=== PATIENT | female | born 1985 | race Caucasian/White ===

== ENCOUNTER 2023-03-31 15:01 | Emergency (ER) | payer OTHER ==
[~2023-03-31] VITALS: Ht 165.1 cm; Wt 66.6 kg
[2023-03-31 16:29] VITALS: PULSE 104; RESP 22; O2SAT 96
[2023-03-31] MEDS ORDERED: SODIUM CHLORIDE 0.9% 1,000 ML IV ONE ×2 (16:30→17:30)
[2023-03-31] MEDS ORDERED: ONDANSETRON HCL 4 MG/2 ML VIAL IV ONE (16:45)
[2023-03-31 16:56] LABS: Base Excess -3.4 mmol/L (-2.0-2.0)
[2023-03-31 17:01] LABS: Basophils # (auto) 0.1 10 ^3/uL (0-0.2); Basophils % (auto) 0.7 % (0.0-2.0); Eosinophils # (auto) 0.3 10 ^3/uL (0-0.8); Hematocrit 39.6 % (36.0-46.0); Lymphocytes # (auto) 4.4 10 ^3/uL (0.4-5.4); Lymphocytes % (auto) 34.6 % (10.0-50.0); Mean Corpuscular Hemoglobin 30.1 pg (28.0-32.0); Mean Corpuscular Hgb Conc. 32.9 g/dL (32.0-36.0); Mean Corpuscular Volume 91.6 fL (80.0-100.0); Monocytes # (auto) 0.7 10 ^3/uL (0-1.3); Monocytes % (auto) 5.2 % (0.0-12.0); Neutrophils # (auto) 7.3 10 ^3/uL (1.6-8.6); Neutrophils % (auto) 57.5 % (37.0-80.0); Nucleated Red Blood Cells % 0.1 %; Red Blood Cells 4.33 10^6/uL (4.0-5.20); Red Cell Distribution Width 14.5 % (11.8-14.3); White Blood Cell 12.8 10^3/uL (4.4-10.8)
[2023-03-31 17:05] LABS: Urine Bacteria NONE SEEN /hpf (None Seen); Urine Blood Negative /uL (Negative); Urine Clarity Clear (Clear); Urine Color Colorless (Yellow); Urine Protein, UAD Negative (Negative); Urine Specific Gravity 1.012 (1.001-1.035); Urine Urobilinogen Normal (Negative); Urine WBC 2 /hpf (0 - 5)
[2023-03-31 17:19] LABS: Lactic Acid w/Reflex 4.1 mmol/L (0.4-2.0)
[2023-03-31 17:20] LABS: Alanine Aminotransferase 21 U/L (7-40); Albumin 4.1 g/dL (3.2-4.8); Alkaline Phosphatase 130 U/L (46-116); Anion Gap 9 (5-15); Aspartate Aminotransferase 37 U/L (13-40); BUN/Creatinine Ratio 12.3 (10.0-20.0); Blood Urea Nitrogen 9 mg/dL (9-23); Calcium 9.1 mg/dL (8.7-10.4); Carbon Dioxide 23 mmol/L (20-30); Chloride 106 mmol/L (98-107); Glucose 115 mg/dL (74-106); Magnesium 1.6 mg/dL (1.6-2.6); Potassium 3.8 mmol/L (3.5-5.1); Sodium 138 mmol/L (136-145)
[2023-03-31 17:21] LABS: Bilirubin, Total 0.6 mg/dL (0.2-1.0); Phosphorus 2.6 mg/dL (2.4-5.1); Total Protein 7.2 g/dL (5.7-8.2)
[2023-03-31 19:26] VITALS: PULSE 91; RESP 12; O2SAT 99
[2023-03-31 19:30] VITALS: TEMP 98.1
[2023-03-31] MEDS ORDERED: ACETAMINOPHEN 325 MG TAB PO ONE (20:15)
[2023-03-31] MEDS ORDERED: INSLISPI SC (20:45)
[2023-03-31] MEDS ORDERED: INSLANTI SC (20:45)
[2023-03-31 20:49] VITALS: BP 98/66; PULSE 88; RESP 20; O2SAT 99
== END 2023-03-31 21:36 | disposition home or self-care (01) ==
LOC: ER 15:01
DX: E11.65 Type 2 diabetes mellitus with hyperglycemia (principal); R10.2 Pelvic and perineal pain; F17.210 Nicotine dependence, cigarettes, uncomplicated; Z32.02 Encounter for pregnancy test, result negative; Z90.49 Acquired absence of other specified parts of digestive tract; Z88.1 Allergy status to other antibiotic agents
CPT/HCPCS: 36415; 36600; 80053; 81001; 81025; 82010; 82805; 82962; 83605; 83735; 84100; 84702; 85025; 96361; 96374; 99285; J2405; J7030

== ENCOUNTER 2025-02-17 13:38 | Inpatient (IN) | payer OTHER, BC, MEDICAID ==
[2025-02-17] VITALS (10 sets, daily range): BP systolic 103–141; BP diastolic 55–79; PULSE 91–111; RESP 12–22; TEMP 99.2; O2SAT 93–100
[~2025-02-17] VITALS: Ht 165.1 cm; Wt 76.3 kg
[~2025-02-17 13:38] MED LIST: INSLANTI SC; INSLISPI SC
[2025-02-17] MEDS: SODIUM CHLORIDE 0.9% 2,000 ML IV ONE (13:59)
[2025-02-17 14:28] LABS: Hematocrit 41.9 % (36.0-46.0); Hemoglobin 13.5 g/dL (12.2-16.2); Mean Corpuscular Hemoglobin 28.5 pg (28.0-32.0); Mean Corpuscular Volume 88.6 fL (80.0-100.0); Nucleated Red Blood Cells % 0.0 %
[2025-02-17 14:37] LABS: Alanine Aminotransferase 17 U/L (7-40); Albumin 4.7 g/dL (3.2-4.8); Anion Gap 21 (5-15); BUN/Creatinine Ratio 12.3 (10.0-20.0); Blood Urea Nitrogen 17 mg/dL (9-23); Calcium 8.9 mg/dL (8.7-10.4); Chloride 106 mmol/L (98-107); Potassium 4.4 mmol/L (3.5-5.1); Sodium 137 mmol/L (136-145); Total Protein 7.9 g/dL (5.7-8.2)
--- NOTE | 2025-02-17 14:37 | ED.PDOC ---
History of present illness HPI Comments 39-year-old female presents here with active vomiting. She has been vomiting for 1 day several times. She states she has not taken her insulin Lantus in 3 days as pharmacy she is to go to his clothes. She states yesterday she began to vomit. She began to have bloody emesis and began to have abdominal pain. She states she took a little bit of her Humalog yesterday. Denies any cough cold runny nose fever or chills. Denies being sick recently. Known history of diabetes. No other medical problems. Is not on blood thinners. Chief Complaint: Hyperglycemia Time Seen by MD: 14:35 History of present illness: Nurses Notes, Medications, Allergies Allergies: Coded Allergies: Sulfamethoxazole w/Trimethoprim (Verified Allergy, Unknown, 02/17/25) Home Meds Active Scripts Insulin Lispro (Human) (Humalog) 100 Unit/Ml Inj, 100 UNIT SC TIDP PRN MDD 30 for 30 Days, #1 INJ 1 Refill Take your usual dose of 10 units before each meal. Prov:JOSEPH ALEJO DO 03/31/23 Insulin Glargine (Lantus) 100 Unit/Ml Inj, 100 UNIT SC DAILY MDD 30 for 30 Days, #30 UNIT take your usual dose of 30 units daily in the morning. Prov:JOSEPH ALEJO DO 03/31/23 Information Source: Patient Mode of Arrival: Ambulatory Timing: Days Duration: Since onset Prehospital treatment: None Modifying factors: Nothing Associated signs and symptoms: None Past Medical History PAST MEDICAL HISTORY: DM, Denies Surgical History: Cholecystectomy DOUBLE END TRIMMER History: No Pertinent DOUBLE END TRIMMER History Family History Family History: Unknown Social History Smoker: Cigarettes Alcohol: Denies ETOH Use Drugs: Denies Drug Use Lives In: Home Constitutional: denies: chills, diaphoresis, fatigue, fever, malaise, sweats, weakness, others EENTM: denies: blurred vision, double vision, ear bleeding, ear discharge, ear drainage, ear pain, ear ringing, eye pain, eye redness, hearing loss, mouth pain, mouth swelling, nasal discharge, nose bleeding, nose congestion, nose pain, photophobia, tearing, throat pain, throat swelling, voice changes, others Respiratory: denies: cough, hemoptysis, orthopnea, SOB at rest, shortness of breath, SOB with excertion, stridor, wheezing, others Cardiovascular: denies: chest pain, dizzy spells, diaphoresis, Dyspnea on exertion, edema, irregular heart beat, left arm pain, lightheadedness, palpitations, PND, syncope, others Gastrointestinal: denies: abdomen distended, abdominal pain, blood streaked bowels, constipated, diarrhea, dysphagia, difficulty swallowing, hematemesis, melena, nausea, poor appetite, poor fluid intake, rectal bleeding, rectal pain, vomiting, others Genitourinary: denies: abnormal vagina bleeding, burning, dyspareunia, dysuria, flank pain, frequency, hematuria, incontinence, pain, , vagina discharge, urgency, others Neurological: denies: dizziness, fainting, headache, left sided numbness, left sided weakness, numbness, paresthesia, pre-existing deficit, right sided numbness, right sided weakness, seizure, speech problems, tingling, tremors, wea kness, others Musculoskeletal: denies: back pain, gout, joint pain, joint swelling, muscle pain, muscle stiffness, neck pain, others Integumetry: denies: bruises, change in color, change in hair/nails, dryness, l aceration, lesions, lumps, rash, wounds, others Allergic/Immunocompromised: denies: Difficulty Healing, Frequent Infections, Hives, Itching, others Hematologic/Lymphatic: denies: anemia, blood clots, easy bleeding, easy bruising, swollen glands, others Endocrine: denies: excessive hunger, excessive sweating, excessive thirst, excessive urination, flushing, intolerance to cold, intolerance to heat, unexplained weight gain, unexplained weight loss, others Psychiatric: denies: anxiety, bipolar disorder, depression, hopeless, panic disorder, schizophrenia, sleepless, suicidal, others All Other Systems: Reviewed and Negative Physical Exam Exam Comments Actively vomiting bright red blood, pale diaphoretic General Appearance: Normal, Severe Distress HEENT: Normal ENT Inspection, Pharynx Normal Neck: Full Range of Motion, Non-Tender, Normal, Normal Inspection Respiratory: Chest Non-Tender, Lungs Clear, No Accessory Muscle Use, No Respiratory Distress, Normal Breath Sounds Cardiovascular: Normal Peripheral Pulses, Tachycardia Breast Exam: Deferred Gastrointestinal: No Organomegaly, Non Tender, No Pulsatile Mass, Normal Bowel Sounds, Soft Genitalia: Deferred Pelvic: Deferred Rectal: Deferred Extremities: No calf tenderness, Normal capillary refill, Normal inspection, N ormal range of motion, Non-tender, No pedal edema Musculoskeletal : Apperance: Normal Neurologic: Alert, No Motor Deficits, Normal Affect, Normal Mood, No Sensory Deficits Cerebellar Function: Normal Reflexes: Normal Skin: Dry, Normal Color, Warm Lymphatic: No Adenopathy Was a procedure done? Was a procedure done?: No Differential Diagnosis (DM) Differential Diagnosis: Dehydration, Diabetic Coma, DKA, Electrolyte Abnormality, Gastroenteritis, Hyperglycemia, UTI, Other (Pneumonia, dehydration, upper GI bleed) X-Ray, Labs, Meds, VS Vital Signs Date Time Temp Pulse Resp B/P (MAP) Pulse Ox O2 Delivery O2 Flow Rate FiO2 02/17/25 15:45 109 22 136/86 (103) 100 02/17/25 14:00 98.5 101 18 137/89 100 98.5 Lab Test 02/17/25 15:35 02/17/25 15:15 02/17/25 14:10 Range/Units Blood Gas Specimen Type Arterial Blood Gas Sample Site Right radial Blood Gas Patient Temperature 37.0 Arterial Blood Date Drawn [id number] Arterial Blood pH 7.305 L 7.350-7.450 Arterial Blood Partial Pressure CO2 19.9 *L 32.0-45.0 mmHg Arterial Blood Partial Pressure O2 100.9 83.0-108.0 mmHg Arterial Blood HCO3 9.7 L 21.0-28.0 mmol/L Arterial Blood Oxygen Saturation 97.4 94.0-98.0 % Arterial Blood Base Excess -14.4 L -2.0-3.0 mmol/L Arterial Blood Oxyhemoglobin 96.3 94.0-98.0 % Arterial Blood Carboxyhemoglobin 0.5 0.5-1.5 % Arterial Blood Methemoglobin 0.6 0.0-1.5 % Erich Test Yes Blood Gas Total Hemoglobin 13.40 12.0-16.0 g/dL Blood Gas Modality Room air FiO2 % 21.0 Blood Gas Critical Value Read Back Yes Blood Gas Notified Whom geraldine Shen Blood Gas Notified Time [id number] Blood Gas Notified By Manual Arts Therapist radha vale POC Glucose 326 H 70-106 mg/dl White Blood Count 19.5 H 4.4-10.8 10^3/uL Red Blood Count 4.73 4.0-5.20 10^6/uL Hemoglobin 13.5 12.2-16.2 g/dL Hematocrit 41.9 36.0-46.0 % Mean Corpuscular Volume 88.6 80.0-100.0 fL Mean Corpuscular Hemoglobin 28.5 28.0-32.0 pg Mean Corpuscular Hemoglobin Concent 32.1 32.0-36.0 g/dL Red Cell Distribution Width 15.9 H 11.8-14.3 % Platelet Count 335 140-450 10^3/uL Mean Platelet Volume 9.7 6.9-10.8 fL Neutrophils (%) (Auto) 87.2 H 37.0-80.0 % Lymphocytes (%) (Auto) 9.7 L 10.0-50.0 % Monocytes (%) (Auto) 3.0 0.0-12.0 % Eosinophils (%) (Auto) 0.0 0.0-7.0 % Basophils (%) (Auto) 0.1 0.0-2.0 % Neutrophils # (Auto) 17.0 H 1.6-8.6 10 ^3/uL Lymphocytes # (Auto) 1.9 0.4-5.4 10 ^3/uL Monocytes # (Auto) 0.6 0-1.3 10 ^3/uL Eosinophils # (Auto) 0 0-0.8 10 ^3/uL Basophils # (Auto) 0 0-0.2 10 ^3/uL Nucleated Red Blood Cells 0.0 % Sodium Level 137 136-145 mmol/L Potassium Level 4.4 3.5-5.1 mmol/L Chloride Level 106 98-107 mmol/L Carbon Dioxide Level 10 L 20-31 mmol/L Anion Gap 21 H 5-15 Blood Urea Nitrogen 17 9-23 mg/dL Creatinine 1.38 H 0.550-1.02 mg/dL Glomerular Filtration Rate Calc 50 >90 mL/min BUN/Creatinine Ratio 12.3 10.0-20.0 Serum Glucose 367 H 74-106 mg/dL Hemoglobin A1c Pending Serum Osmolality 319 H 278-298 mOsm/kg Calcium Level 8.9 8.7-10.4 mg/dL Phosphorus Level 3.4 2.4-5.1 mg/dL Magnesium Level 1.7 1.6-2.6 mg/dL Total Bilirubin 0.9 0.2-1.0 mg/dL Aspartate Amino Transferase (AST) 15 13-40 U/L Alanine Aminotransferase (ALT) 17 7-40 U/L Alkaline Phosphatase 155 H 46-116 U/L Total Protein 7.9 5.7-8.2 g/dL Albumin 4.7 3.2-4.8 g/dL Beta-Hydroxybutyric Acid > 4.500 H < 0.4 mmol/L Current Medications Medications (Trade) Dose Ordered Sig/Petra Route Start Time Stop Time Status Last Admin Sodium Chloride 2,000 ml @ 1,000 mls/hr Q2H ONCE IV 02/17/25 14:00 02/17/25 15:59 DC 02/17/25 13:59 Ondansetron HCl (Zofran) 4 mg ONCE ONCE IV 02/17/25 15:00 02/17/25 15:01 DC 02/17/25 15:31 Famotidine (Pepcid Injection) 40 mg ONCE ONCE IV 02/17/25 15:00 02/17/25 15:01 DC 02/17/25 15:31 Sodium Chloride 1,000 ml @ 500 mls/hr Q2H IV 02/17/25 15:00 02/17/25 16:59 02/17/25 15:00 Insulin Human (Reg)/Sodium Chloride 100 ml @ 0.5 mls/hr Q24H IV 02/17/25 15:00 02/17/25 15:45 Diagnostic Test (Pha) (Accu-Chek Comfort Curve T) 1 strip Q90MIN 02/17/25 15:00 02/17/25 16:46 Insulin Glargine (Lantus) 15 units ONCE ONCE SC 02/17/25 15:00 02/17/25 15:03 DC 02/17/25 15:28 Insulin Human Regular (InsuLIN R) 7 units ONCE ONCE IV 02/17/25 15:15 02/17/25 15:16 DC 02/17/25 15:31 39-year-old female with a known history of diabetes presents here with what appears to be in DKA. Blood work has been done which demonstrates evidence of leukocytosis of 19.8, and anion gap of 21, evidence of acute kidney injury with a be creatinine 1.38 and elevated beta hydroxybutyrate greater than 4.5. Blood glucose is at 367. At this time I have immediately started her on IV fluids, patient has been given an insulin bolus and started on insulin drip. Potassium is currently 4.4 does not need active repletion at this time. She states she has been out of her Lantus x3 days and is likely the cause of her current DKA. Additionally she seems to be having an upper GI bleed possible gastric ulcer. Mother is at bedside who states that when she begins to vomit she often has bloody emesis and then begins to have black stools. I have started her on famotidine IV. Given her leukocytosis of 19.8, concern for possible infection that is precipitating this event also. Urine has been ordered as chest x-ray. Both are pending. At this time hospitalist team has been consulted for further care. Time of 1ST Reevaluation: 15:05 Reevaluation 1ST: Unchanged Patient Education/Counseling: Diagnosis, Treatment Family Education/Counseling: No Family Present SEPSIS Sepsis Screen Physician Orders Urinalysis (02/17/25 13:49) Test, Urine (02/17/25 13:49) Chest Two Views Routine (02/17/25 14:56) Insulin Drip Protocol (02/17/25 ) Sodium Chloride 0.9% (02/17/25 15:00) Sodium Chloride 0.9% (02/17/25 17:00) Sodium Chloride 0.9% (02/17/25 21:00) Insulin Drip 100 Unit/100ml (Myxredlin 1 (02/17/25 15:00) Dextrose 50% Syringe (02/17/25 15:00) Glucose Blood (Accu-Chek Comfort Curve T (02/17/25 15:00) Abg W/ Co-Ox (02/17/25 14:59) Basic Metabolic Panel (02/17/25 20:59) Basic Metabolic Panel (02/18/25 02:59) Basic Metabolic Panel (02/18/25 08:59) Neurological Assessment (02/17/25 14:59) Vs/Hemodynamics .PER UNIT PROTOCOL (02/17/25 14:59) Vital Signs Date Time Temp Pulse Resp B/P (MAP) Pulse Ox O2 Delivery O2 Flow Rate FiO2 02/17/25 15:45 109 22 136/86 (103) 100 02/17/25 14:00 98.5 101 18 137/89 100 98.5 Laboratory Tests Test 02/17/25 14:10 White Blood Count 19.5 10^3/uL (4.4-10.8) H Medications Medications Dose Ordered Sig/Petra Route Start Time Stop Time Status Last Admin Dose Admin Diagnostic Test (Pha) 1 strip Q90MIN 02/17/25 15:00 02/17/25 16:46 Famotidine 40 mg ONCE ONCE IV 02/17/25 15:00 02/17/25 15:01 DC 02/17/25 15:31 Insulin Glargine 15 units ONCE ONCE SC 02/17/25 15:00 02/17/25 15:03 DC 02/17/25 15:28 Insulin Human (Reg)/Sodium Chloride 100 ml @ 0.5 mls/hr Q24H IV 02/17/25 15:00 02/17/25 15:45 Insulin Human Regular 7 units ONCE ONCE IV 02/17/25 15:15 02/17/25 15:16 DC 02/17/25 15:31 Ondansetron HCl 4 mg ONCE ONCE IV 02/17/25 15:00 02/17/25 15:01 DC 02/17/25 15:31 Sodium Chloride 1,000 ml @ 500 mls/hr Q2H IV 02/17/25 15:00 02/17/25 16:59 02/17/25 15:00 Sodium Chloride 2,000 ml @ 1,000 mls/hr Q2H ONCE IV 02/17/25 14:00 02/17/25 15:59 DC 02/17/25 13:59 Departure 1 Departure Time of Disposition: 17:05 Impression: Primary Impression: DKA (diabetic ketoacidosis) Qualified Codes: E10.10 - Type 1 diabetes mellitus with ketoacidosis without coma Additional Impression: Upper GI bleed Disposition: ADMITTED INPATIENT Admit to: ICU Condition: Critical Critical Care Note Critical Care Time?: Yes (35 min-critical care time only) Critical care comment: Time spent evaluating the patient, speaking to the patient immediately upon arrival, and care with nursing staff, speaking to admitting physician, speaking to family and the patient, multiple re-evaluations Stability Stability form required: No Heart Score Heart Score: Heart Score Response (Comments) Value History N/A 0 EKG N/A 0 Age N/A 0 Risk Factors N/A 0 Troponin N/A 0 Total 0 I personally scribed for DIANNA RUSSO MD ([email or web address]) on 02/17/25 at 14:37. Electronically submitted by Saundra Anna ([email or web address]). DIANNA RUSSO MD Feb 17, 2025 14:37
[2025-02-17 14:38] LABS: Bilirubin, Total 0.9 mg/dL (0.2-1.0)
[2025-02-17 14:41] LABS: Alkaline Phosphatase 155 U/L (46-116); Carbon Dioxide 10 mmol/L (20-31); Glucose 367 mg/dL (74-106)
[2025-02-17] MEDS: SODIUM CHLORIDE 0.9% 1,000 ML IV SCH ×2 (15:00→17:33)
[2025-02-17] MEDS ORDERED: DEXTROSE (50%) 50ML SYRG IV PRN ×2 (15:00→20:30)
[2025-02-17] MEDS: ACCU-CHEK COMFORT CURVE STRIP VI SCH ×2 (15:18→22:20)
[2025-02-17] MEDS: INSULIN LANTUS (GLARGINE) 1 /0.01ml (100units/ml) SC ONE ×2 (15:28→21:00)
[2025-02-17] MEDS: InsuLIN REG 1unit/0.01ml Soln (100units/ml) IV ONE (15:31)
[2025-02-17] MEDS: ONDANSETRON HCL 4 MG/2 ML VIAL IV ONE (15:31)
[2025-02-17] MEDS: FAMOTIDINE (10MG/ML) 2ML VL IV ONE (15:31)
[2025-02-17 15:44] LABS: Base Excess -14.4 mmol/L (-2.0-3.0)
[2025-02-17] MEDS: INSULIN DRIP 100 UNIT/100ML 100 ML IV SCH ×2 (15:45→19:30)
[2025-02-17 15:46] LABS: Magnesium 1.7 mg/dL (1.6-2.6)
--- NOTE | 2025-02-17 16:22 | DVHHP2 ---
History of Present Illness Reason for Visit: Hyperglycemia History of Present Illness 39-year-old female with past medical history of type 1 diabetes mellitus presents to the ED with hyperglycemia. She reports running out of her Lantus three days ago, leading to progressive hyperglycemia associated with nausea and vomiting. She describes episodes of coffee ground emesis with blood-tinged vomit. She also reports generalized abdominal pain. She denies melena, hematochezia, chest pain, shortness of breath, or urinary symptoms. In the ED, the patient was found to be in diabetic ketoacidosis and was started on insulin infusion per DKA protocol. Social history is notable for vaping and marijuana use. Past Medical History As stated in HPI Past Surgical History Cholecystectomy Family History Reviewed, non-contributory to the management of this case. Past Social History The patient lives at home, denies smoking, alcohol or illicit drugs abuse. Review of Systems Constitutional: Yes: Malaise; No: Fever, Chills, Sweats, Weakness, Other Eyes: No: Pain, Vision change, Conjunctivae inflammation, Eyelid inflammation, Other, Redness ENT: No: Ear pain, Ear discharge, Nose pain, Nose discharge, Nose congestion, Mouth pain, Mouth swelling, Throat pain, Throat swelling, Other Respiratory: No: Cough, Dry, Shortness of breath, SOB with excertion, Wheezing, Hemoptysis, Pleuritic Pain, Sputum, Wheezing, Other Cardiovascular: No: Chest Pain, Palpitations, Orthopnea, Paroxysmal Noc. Dyspnea, Edema, Lt Headedness, Other Gastrointestinal: Nausea, Vomiting, Abdominal Pain, Other (Coffee-ground blood- tinged emesis); No: Diarrhea, Constipation, Melena, Hematochezia Genitourinary: No Dysuria, No Frequency, No Incontinence, No Hematuria, No Retention, No Other Musculoskeletal: No: other, neck pain, shoulder pain, arm pain, back pain, hand pain, leg pain, foot pain Skin: No: Rash, Lesions, Jaundice, Bruising, Other Neurological: No: Weakness, Numbness, Incoordination, Change in speech, Confusion, Seizures, Other Allergies: Coded Allergies: Sulfamethoxazole w/Trimethoprim (Verified Allergy, Unknown, 02/17/25) Medications Current Medications Medications Dose Ordered Sig/Petra Route Start Time Stop Time Status Last Admin Dose Admin Sodium Chloride 1,000 ml @ 500 mls/hr Q2H IV 02/17/25 15:00 02/17/25 16:59 Sodium Chloride 1,000 ml @ 250 mls/hr Q4H IV 02/17/25 17:00 02/17/25 17:01 Sodium Chloride 1,000 ml @ 150 mls/hr Q6H40M IV 02/17/25 21:00 Insulin Human (Reg)/Sodium Chloride 100 ml @ 0.5 mls/hr Q24H IV 02/17/25 15:00 02/17/25 15:45 4 MLS/HR Dextrose 50 ml UD PRN IV 02/17/25 15:00 Diagnostic Test (Pha) 1 strip Q90MIN 02/17/25 15:00 02/17/25 15:18 1 STRIP Ondansetron HCl 4 mg Q4HP PRN IV 02/17/25 16:15 UNV Magnesium Sulfate/ Dextrose 100 ml @ 100 mls/hr Q1H IV 02/17/25 16:15 02/17/25 18:14 UNV Pantoprazole Sodium 40 mg BID IV 02/17/25 16:15 UNV Exam Vital Signs Vital Signs Date Time Temp Pulse Resp B/P (MAP) Pulse Ox O2 Delivery O2 Flow Rate FiO2 02/17/25 15:45 109 22 136/86 (103) 100 02/17/25 14:00 98.5 98.5 General Appearance: Alert, Oriented X3, Cooperative, mild distress HEENT: Atraumatic, PERRLA, EOMI, Mucous membr. moist/pink Respiratory: Clear to auscultation, Normal air movement Cardiovascular: Regular rate, Normal S1, Normal S2 Abdominal: Normal bowel sounds, No tenderness Extremities: No clubbing, No cyanosis, No edema Skin: No rashes, No breakdown Neuro: Normal speech Psych/Mental Status: Mental status NL Labs/Xrays Labs Test 02/17/25 15:35 02/17/25 15:15 02/17/25 14:10 Range/Units Blood Gas Specimen Type Arterial Blood Gas Sample Site Right radial Blood Gas Patient Temperature 37.0 Arterial Blood Date Drawn [id number] Arterial Blood pH 7.305 L 7.350-7.450 Arterial Blood Partial Pressure CO2 19.9 *L 32.0-45.0 mmHg Arterial Blood Partial Pressure O2 100.9 83.0-108.0 mmHg Arterial Blood HCO3 9.7 L 21.0-28.0 mmol/L Arterial Blood Oxygen Saturation 97.4 94.0-98.0 % Arterial Blood Base Excess -14.4 L -2.0-3.0 mmol/L Arterial Blood Oxyhemoglobin 96.3 94.0-98.0 % Arterial Blood Carboxyhemoglobin 0.5 0.5-1.5 % Arterial Blood Methemoglobin 0.6 0.0-1.5 % Erich Test Yes Blood Gas Total Hemoglobin 13.40 12.0-16.0 g/dL Blood Gas Modality Room air FiO2 % 21.0 Blood Gas Critical Value Read Back Yes Blood Gas Notified Whom geraldine Shen Blood Gas Notified Time [id number] Blood Gas Notified By Verification Manager radha vale POC Glucose 326 H 70-106 mg/dl White Blood Count 19.5 H 4.4-10.8 10^3/uL Red Blood Count 4.73 4.0-5.20 10^6/uL Hemoglobin 13.5 12.2-16.2 g/dL Hematocrit 41.9 36.0-46.0 % Mean Corpuscular Volume 88.6 80.0-100.0 fL Mean Corpuscular Hemoglobin 28.5 28.0-32.0 pg Mean Corpuscular Hemoglobin Concent 32.1 32.0-36.0 g/dL Red Cell Distribution Width 15.9 H 11.8-14.3 % Platelet Count 335 140-450 10^3/uL Mean Platelet Volume 9.7 6.9-10.8 fL Neutrophils (%) (Auto) 87.2 H 37.0-80.0 % Lymphocytes (%) (Auto) 9.7 L 10.0-50.0 % Monocytes (%) (Auto) 3.0 0.0-12.0 % Eosinophils (%) (Auto) 0.0 0.0-7.0 % Basophils (%) (Auto) 0.1 0.0-2.0 % Neutrophils # (Auto) 17.0 H 1.6-8.6 10 ^3/uL Lymphocytes # (Auto) 1.9 0.4-5.4 10 ^3/uL Monocytes # (Auto) 0.6 0-1.3 10 ^3/uL Eosinophils # (Auto) 0 0-0.8 10 ^3/uL Basophils # (Auto) 0 0-0.2 10 ^3/uL Nucleated Red Blood Cells 0.0 % Sodium Level 137 136-145 mmol/L Potassium Level 4.4 3.5-5.1 mmol/L Chloride Level 106 98-107 mmol/L Carbon Dioxide Level 10 L 20-31 mmol/L Anion Gap 21 H 5-15 Blood Urea Nitrogen 17 9-23 mg/dL Creatinine 1.38 H 0.550-1.02 mg/dL Glomerular Filtration Rate Calc 50 >90 mL/min BUN/Creatinine Ratio 12.3 10.0-20.0 Serum Glucose 367 H 74-106 mg/dL Serum Osmolality 319 H 278-298 mOsm/kg Calcium Level 8.9 8.7-10.4 mg/dL Phosphorus Level 3.4 2.4-5.1 mg/dL Magnesium Level 1.7 1.6-2.6 mg/dL Total Bilirubin 0.9 0.2-1.0 mg/dL Aspartate Amino Transferase (AST) 15 13-40 U/L Alanine Aminotransferase (ALT) 17 7-40 U/L Alkaline Phosphatase 155 H 46-116 U/L Total Protein 7.9 5.7-8.2 g/dL Albumin 4.7 3.2-4.8 g/dL Beta-Hydroxybutyric Acid > 4.500 H < 0.4 mmol/L SEPSIS Sepsis Screen Date sepsis recognized/suspect: Feb 17, 2025 Time Sepsis recognized/suspect: 14:00 Recent Procedure: No On Antibiotic Therapy: No Respiratory Rate >20: No Heart Rate >90: Yes Temp<36 C (96.8 F) or >38.3 C: No SBP <90 or MAP <65 mmHG: No New Acute Mental Status Change: No Is the patient on CPAP, BIPAP,: No Physician Orders Urinalysis (02/17/25 13:49) Test, Urine (02/17/25 13:49) Chest Two Views Routine (02/17/25 14:56) Insulin Drip Protocol (02/17/25 ) Sodium Chloride 0.9% (02/17/25 15:00) Sodium Chloride 0.9% (02/17/25 17:00) Sodium Chloride 0.9% (02/17/25 21:00) Insulin Drip 100 Unit/100ml (Myxredlin 1 (02/17/25 15:00) Dextrose 50% Syringe (8/24/25 15:00) Glucose Blood (Accu-Chek Comfort Curve T (02/17/25 15:00) Abg W/ Co-Ox (02/17/25 14:59) Basic Metabolic Panel (02/17/25 20:59) Basic Metabolic Panel (02/18/25 02:59) Basic Metabolic Panel (02/18/25 08:59) Neurological Assessment (02/17/25 14:59) Vs/Hemodynamics .PER UNIT PROTOCOL (02/17/25 14:59) Admit (02/17/25 16:10) Code Status (02/17/25 16:10) Ondansetron Hcl (Zofran) (02/17/25 16:15) Complete Blood Count (02/18/25 04:00) Comprehensive Metabolic Panel (02/18/25 04:00) Npo (Nothing By Mouth) Diet (02/17/25 Dinner) Condition: Serious (02/17/25 16:10) Magnesium Sulfate 1gm/100ml (02/17/25 16:15) Pantoprazole (Protonix) (02/17/25 16:15) Ct Ab Pel Wo Con-No Oral Or Iv (02/17/25 16:10) Vital Signs Date Time Temp Pulse Resp B/P (MAP) Pulse Ox O2 Delivery O2 Flow Rate FiO2 02/17/25 15:45 109 22 136/86 (103) 100 02/17/25 14:00 98.5 101 18 137/89 100 98.5 Laboratory Tests Test 02/17/25 14:10 White Blood Count 19.5 10^3/uL (4.4-10.8) H Medications Medications Dose Ordered Sig/Petra Route Start Time Stop Time Status Last Admin Dose Admin Diagnostic Test (Pha) 1 strip Q90MIN 02/17/25 15:00 02/17/25 15:18 1 STRIP Famotidine 40 mg ONCE ONCE IV 02/17/25 15:00 02/17/25 15:01 DC 02/17/25 15:31 40 MG Insulin Glargine 15 units ONCE ONCE SC 02/17/25 15:00 02/17/25 15:03 DC 02/17/25 15:28 15 UNITS Insulin Human (Reg)/Sodium Chloride 100 ml @ 0.5 mls/hr Q24H IV 02/17/25 15:00 02/17/25 15:45 4 MLS/HR Insulin Human Regular 7 units ONCE ONCE IV 02/17/25 15:15 02/17/25 15:16 DC 02/17/25 15:31 7 UNITS Ondansetron HCl 4 mg ONCE ONCE IV 02/17/25 15:00 02/17/25 15:01 DC 02/17/25 15:31 4 MG Sodium Chloride 2,000 ml @ 1,000 mls/hr Q2H ONCE IV 02/17/25 14:00 02/17/25 15:59 DC 02/17/25 13:59 1,000 MLS/HR Assessment/Plan Assessment/Plan # DKA # DM type 1 * Admit to ICU * Continue with DKA protocol * BMP q.6 hours * Monitor electrolytes and replete as needed # rule out GI Bleed # acute abdominal pain * CT of abdomen and pelvis * NPO * Protonix b.i.d. * Monitor H&H and Consider GI consult as needed # hypomagnesemia * Repleted * Monitor # vaping and marijuana use * Counseled on cessation Medical plan discussed with patient Plan discussed with: Patient My Orders Orders - JOSE CARRILLO Procedure Category Date Status Time Admit ADMIT 02/17/25 Transmitted 16:10 Code Status CODE 02/17/25 Transmitted 16:10 Ondansetron Hcl PHA 02/17/25 Logged (Zofran) 16:15 Complete Blood Count LAB 02/18/25 Verified 04:00 Comprehensive LAB 02/18/25 Verified Metabolic Panel 04:00 Npo (Nothing By DIET 02/17/25 Transmitted Mouth) Diet Dinner Condition: Serious TENA 02/17/25 In Process 16:10 Magnesium Sulfate PHA 02/17/25 Logged 1gm/100ml 16:15 Pantoprazole PHA 02/17/25 Logged (Protonix) 16:15 Ct Ab Pel Wo Con-No CT 02/17/25 Logged Oral Or Iv 16:10 Date of Service: Feb 17, 2025 Billing Provider: JOSE CARRILLO Common Visit Codes: [id number] INP/OBS CARE (HIGH) JOSE CARRILLO Feb 17, 2025 16:22
[2025-02-17] MEDS: PANTOPRAZOLE 40 MG/10 ML VIAL INJ IV SCH (17:33)
[2025-02-17] MEDS: MAGNESIUM SULFATE 1GM/100ML 100 ML IV SCH (17:50)
[2025-02-17 18:09] LABS: Urine Protein, UAD 1+ (Negative)
[2025-02-17] MEDS: ONDANSETRON HCL 4 MG/2 ML VIAL IV PRN (18:49)
--- NOTE | 2025-02-17 18:54 | DVH ---
Exam: CT CT AB PEL WO CON-NO ORAL OR IV History: adominal pain Comparison Study: None Technique: Multidetector spiral CT of the abdomen was performed from lung bases to pubic symphysis. Imaging was performed without IV contrast. Axial, coronal and sagittal multiplanar reformats were ob tained from the axial data set by the technologist. Radiation Dose : 1. Abdomen/Pelvis: CTDIvol 13.2 mGy, DLP 710 mGy*cm. Findings: Evaluation of solid organs is limited due to lack of intravenous contrast use. Lung Bases: No acute or significant lung base finding. Normal heart size. No pleural or pericardial effusion. Liver: The liver is normal in size. No focal lesions. Focal fatty sparing is seen adjacent to the fa lciform ligament. Gallbladder and Biliary Tree: Gallbladder is surgically absent. Spleen: Unremarkable Pancreas: The pancreas is grossly normal in appearance. Adrenal Glands: Unremarkable Kidneys: Kidneys are grossly normal without calculi or hydronephrosis. Bladder: Grossly unremarkable for degree of distention. Bowel: The stomach is grossly normal in appearance. No evidence of bowel obstruction. Mild wall thic kening throughout the colon may reflect mild colitis. The appendix is not visualized; however, no se condary findings of acute appendicitis identified. Ascites: Absent Lymphadenopathy: No mesenteric, retroperitoneal or periportal lymphadenopathy. Abdominal Wall and Mesentery: Unremarkable. Vasculature: The visualized abdominal aorta is normal in size and caliber. Evaluation of abdominal a nd pelvic vessels is limited due to lack of intravenous contrast. Pelvic Organs: Unremarkable Musculoskeletal: No aggressive focal bony lesions, acute fractures or dislocation. IMPRESSION: 1. Mild wall thickening throughout the colon may reflect mild colitis. Radiation optimization: All CT scans at this facility use at least one of these dose optimization neftali hniques: automated exposure control mA and/or kV adjustment per patient size (includes targeted exam s where dose is matched to clinical indication) or iterative reconstruction.
--- NOTE | 2025-02-17 18:57 | DVH ---
CHEST RADIOGRAPH Indication: ro infection Technique: Single frontal view of the chest was obtained Comparison: None FINDINGS: Lines and Tubes: None Lungs: No focal consolidation. Pleura: No effusion. No pneumothorax. Cardiomediastinal contours: Unremarkable Bones: No acute osseous abnormality. IMPRESSION: No acute cardiopulmonary disease.
[2025-02-17] MEDS ORDERED: SODIUM CHLORIDE 0.9% 1,000 ML IV SCH (21:00)
[2025-02-17 21:55] LABS: Potassium 4.1 mmol/L (3.5-5.1); Sodium 138 mmol/L (136-145)
[2025-02-17 21:56] LABS: Anion Gap 18 (5-15)
[2025-02-17 21:59] LABS: Calcium 8.3 mg/dL (8.7-10.4); Carbon Dioxide 11 mmol/L (20-31); Chloride 109 mmol/L (98-107)
[2025-02-17] MEDS: INSULIN LANTUS (GLARGINE) 1 /0.01ml (100units/ml) SC SCH (22:00)
[2025-02-17 22:01] LABS: BUN/Creatinine Ratio 11.9 (10.0-20.0); Blood Urea Nitrogen 13 mg/dL (9-23)
[2025-02-17 22:15] LABS: Glucose 333 mg/dL (74-106)
[2025-02-18] VITALS (51 sets, daily range): BP systolic 89–147; BP diastolic 46–90; PULSE 78–108; RESP 10–22; TEMP 98.1–99.1; O2SAT 83–100
[2025-02-18] MEDS: SODIUM CHLORIDE 0.9% 1,000 ML IV SCH (01:00)
[2025-02-18] MEDS ORDERED: INSULIN DRIP 100 UNIT/100ML 100 ML IV SCH ×2 (03:30→22:45)
[2025-02-18] MEDS ORDERED: DEXTROSE (50%) 50ML SYRG IV PRN ×2 (03:30→06:15)
[2025-02-18 03:34] LABS: Alanine Aminotransferase 15 U/L (7-40); Albumin 4.2 g/dL (3.2-4.8); Anion Gap 14 (5-15); BUN/Creatinine Ratio 12.7 (10.0-20.0); Bilirubin, Total 0.8 mg/dL (0.2-1.0); Blood Urea Nitrogen 13 mg/dL (9-23); Calcium 8.8 mg/dL (8.7-10.4); Potassium 3.9 mmol/L (3.5-5.1); Sodium 143 mmol/L (136-145); Total Protein 7.5 g/dL (5.7-8.2)
[2025-02-18 03:38] LABS: Hematocrit 37.1 % (36.0-46.0); Hemoglobin 12.2 g/dL (12.2-16.2); Mean Corpuscular Hemoglobin 28.7 pg (28.0-32.0); Mean Corpuscular Volume 86.8 fL (80.0-100.0); Nucleated Red Blood Cells % 0.0 %
[2025-02-18 03:41] LABS: Alkaline Phosphatase 140 U/L (46-116); Carbon Dioxide 17 mmol/L (20-31); Chloride 112 mmol/L (98-107); Glucose 124 mg/dL (74-106)
[2025-02-18 09:48] LABS: Potassium 3.6 mmol/L (3.5-5.1); Sodium 142 mmol/L (136-145)
[2025-02-18 09:49] LABS: Anion Gap 15 (5-15)
[2025-02-18 09:54] LABS: BUN/Creatinine Ratio 17.9 (10.0-20.0); Blood Urea Nitrogen 17 mg/dL (9-23)
[2025-02-18 09:59] LABS: Calcium 8.6 mg/dL (8.7-10.4); Carbon Dioxide 15 mmol/L (20-31); Chloride 112 mmol/L (98-107); Glucose 157 mg/dL (74-106)
--- NOTE | 2025-02-18 10:46 | DVHPN2 ---
Progress Note Date Seen: Feb 18, 2025 Medical Necessity Reason Pt with a Central, PICC or Fol: No Subjective Patient reports: No new complaints Review of Systems: HEENT:Normal, CVS:Normal, RESPIRATORY:Normal, GI:Normal, :Normal, MSK:Normal, NEURO:Normal Objective vital signs Vital Sign Date Time Temp Pulse Resp B/P (MAP) Pulse Ox O2 Delivery O2 Flow Rate FiO2 02/18/25 10:00 13 99 Room Air* 0 21 02/18/25 10:00 107 02/18/25 09:30 02/18/25 08:00 98.6 98.6 Total Intake and Output 02/17/25 02/17/25 02/18/25 15:00 23:00 07:00 Intake Total 112 ml 414 ml Balance 112 ml 414 ml medications Current Medications Medications Dose Ordered Sig/Petra Route Start Time Stop Time Status Last Admin Dose Admin Ondansetron HCl 4 mg Q4HP PRN IV 02/17/25 16:15 02/18/25 07:38 4 MG Pantoprazole Sodium 40 mg BID IV 02/17/25 16:15 02/18/25 09:59 40 MG Insulin Glargine 10 units HS SC 02/17/25 22:00 Diagnostic Test (Pha) 1 strip Q90MIN 02/17/25 21:00 02/18/25 09:14 1 STRIP Insulin Glargine 15 units DAILY SC 02/18/25 10:00 Sodium Chloride 1,000 ml @ 50 mls/hr Q20H IV 02/18/25 01:00 Dextrose 50 ml UD PRN IV 02/18/25 06:15 Insulin Human (Reg)/Sodium Chloride 100 ml @ 0.5 mls/hr Q24H IV 02/18/25 06:15 Examination: GENERAL:Normal, HEENT:Normal, NECK:Normal, LUNGS:Normal, CVS:Normal, ABDOMEN:Normal, MSK:Normal, SKIN:Normal, NEURO:Normal, :Normal laboratory and microbiology Laboratory Tests 02/18/25 09:20 02/18/25 02:41 Test 02/18/25 09:20 Range/Units Serum Glucose 157 H 74-106 mg/dL Problem List/Assessment/Plan Problem List/Assessment/Plan #1 DKA: lantus, ssi, ivf #2 persistent vomiting: check lipase, ppi, gi #3 uncontrolled dm #4 acute renal failure ?vasomotor nephropathy #5 likely sirs due to dka Plan discussed with: Patient My Orders My Orders Orders - SWETA LEOS MD Procedure Category Date Status Time * Gi [facility] [employer] CONS 02/18/25 Transmitted 10:39 Lactated Ringers Lr PHA 02/18/25 Transmitted 10:45 Metoclopramide PHA 02/18/25 Transmitted Injection (Reglan 10:45 Metoclopramide PHA 02/18/25 Transmitted Injection (Reglan 10:45 Lipase LAB 02/18/25 Transmitted 10:39 Complete Blood Count LAB 02/19/25 Verified 06:00 Comprehensive LAB 02/19/25 Verified Metabolic Panel 06:00 Magnesium LAB 02/19/25 Verified 05:00 Phosphorus LAB 02/19/25 Verified 06:00 Critical Care Time (mins): 38 (critical care time excluding procedures is 38 mins) Date of Service: Feb 18, 2025 Billing Provider: SWETA LEOS MD Common Visit Codes: [id number] CARE 30-74 MIN SWETA LEOS MD Feb 18, 2025 10:46
[2025-02-18] MEDS: INSULIN LANTUS (GLARGINE) 1 /0.01ml (100units/ml) SC SCH (10:49)
[2025-02-18] MEDS: LACTATED RINGER'S 1,000 ML IV SCH (11:02)
[2025-02-18] MEDS: METOCLOPRAMIDE HCL 5MG/ml INJ 2ml VIAL IV ONE (11:02)
--- NOTE | 2025-02-18 13:20 | DVHINCON2 ---
GI Consult Consult Note GI consult note Date of Consultation: 02/19/2024 Chief Complaint: Persistent nausea vomiting Referring Physician: Dr. Vegas H&P: 39-year-old female admitted with DKA. Patient ran out of her Lantus three days ago. Also complaining of nausea and vomiting for the past four days. Per RN patient already had 400 mL of emesis this morning. Earlier on patient had coffee-ground emesis none at this time. Last bowel movement prior to hos pitalization. No melena or red blood in stool. Patient was having generalized abdominal pain which has improved at this time. No EGD in past. Patient has similar symptoms usually with DKA Past Medical History: DM, DKA Past Surgical History: Cholecystectomy Social History: NO smoking, drinking ETOH and use of illegal drugs. Family History: Noncontributory Review of Systems: Constitutional: no fever, chill, weight loss HEENT: no eye pain, no hearing loss, no oral lesion, no scleral icterus Heart: no chest pain, no chest pressure Lung: no cough, no dyspnea with exertion Abdomen: see HPI Physical exam: General: NAD, AAOX3 Chest: lung rodas clear to auscultation Heart: RRR, no murmur Abdomen:no tenderness to palpation, +BS Labs: Labs Test 02/18/25 11:58 02/18/25 09:20 02/18/25 02:41 02/17/25 15:35 Range/Units POC Glucose 194 H 70-106 mg/dl Sodium Level 142 136-145 mmol/L Potassium Level 3.6 3.5-5.1 mmol/L Chloride Level 112 H 98-107 mmol/L Carbon Dioxide Level 15 L 20-31 mmol/L Anion Gap 15 5-15 Blood Urea Nitrogen 17 9-23 mg/dL Creatinine 0.95 0.550-1.02 mg/dL Glomerular Filtration Rate Calc 78 >90 mL/min BUN/Creatinine Ratio 17.9 10.0-20.0 Serum Glucose 157 H 74-106 mg/dL Calcium Level 8.6 L 8.7-10.4 mg/dL Lipase 17 12-53 U/L White Blood Count 22.8 H 4.4-10.8 10^3/uL Red Blood Count 4.27 4.0-5.20 10^6/uL Hemoglobin 12.2 12.2-16.2 g/dL Hematocrit 37.1 # 36.0-46.0 % Mean Corpuscular Volume 86.8 80.0-100.0 fL Mean Corpuscular Hemoglobin 28.7 28.0-32.0 pg Mean Corpuscular Hemoglobin Concent 33.0 32.0-36.0 g/dL Red Cell Distribution Width 15.7 H 11.8-14.3 % Platelet Count 310 140-450 10^3/uL Mean Platelet Volume 9.8 6.9-10.8 fL Neutrophils (%) (Auto) 85.5 H 37.0-80.0 % Lymphocytes (%) (Auto) 10.5 10.0-50.0 % Monocytes (%) (Auto) 3.9 0.0-12.0 % Eosinophils (%) (Auto) 0.0 0.0-7.0 % Basophils (%) (Auto) 0.1 0.0-2.0 % Neutrophils # (Auto) 19.5 H 1.6-8.6 10 ^3/uL Lymphocytes # (Auto) 2.4 0.4-5.4 10 ^3/uL Monocytes # (Auto) 0.9 0-1.3 10 ^3/uL Eosinophils # (Auto) 0 0-0.8 10 ^3/uL Basophils # (Auto) 0 0-0.2 10 ^3/uL Nucleated Red Blood Cells 0.0 % Total Bilirubin 0.8 0.2-1.0 mg/dL Aspartate Amino Transferase (AST) 14 13-40 U/L Alanine Aminotransferase (ALT) 15 7-40 U/L Alkaline Phosphatase 140 H 46-116 U/L Total Protein 7.5 5.7-8.2 g/dL Albumin 4.2 3.2-4.8 g/dL Blood Gas Specimen Type Arterial Blood Gas Sample Site Right radial Blood Gas Patient Temperature 37.0 Arterial Blood Date Drawn [id number] Arterial Blood pH 7.305 L 7.350-7.450 Arterial Blood Partial Pressure CO2 19.9 *L 32.0-45.0 mmHg Arterial Blood Partial Pressure O2 100.9 83.0-108.0 mmHg Arterial Blood HCO3 9.7 L 21.0-28.0 mmol/L Arterial Blood Oxygen Saturation 97.4 94.0-98.0 % Arterial Blood Base Excess -14.4 L -2.0-3.0 mmol/L Arterial Blood Oxyhemoglobin 96.3 94.0-98.0 % Arterial Blood Carboxyhemoglobin 0.5 0.5-1.5 % Arterial Blood Methemoglobin 0.6 0.0-1.5 % Erich Test Yes Blood Gas Total Hemoglobin 13.40 12.0-16.0 g/dL Blood Gas Modality Room air FiO2 % 21.0 Blood Gas Critical Value Read Back Yes Blood Gas Notified Whom geraldine Shen Blood Gas Notified Time [id number] Blood Gas Notified By Chalk Cutter radha vale Test 02/17/25 15:00 02/17/25 14:10 Range/Units Urine Color Light-yellow Yellow Urine Clarity Clear Clear Urine pH 6.0 5.0-9.0 Urine Specific Spearman 1.021 1.001-1.035 Urine Protein 1+ H Negative Urine Ketones 4+ H Negative Urine Blood Negative Negative /uL Urine Nitrite Negative Negative Urine Bilirubin Negative Negative Urine Urobilinogen 2 H Negative mg/dL Urine Leukocyte Esterase 1+ Negative /uL Urine RBC 1 0 - 4 /hpf Urine Microscopic WBC 3 0-5 /HPF Urine Squamous Epithelial Cells Few <5 /hpf Urine Bacteria Few H None Seen /hpf Urine Hyaline Casts Few 0 - 2 /lpf Urine Mucus Few None Seen Urine Glucose 4+ H Normal mg/dL Urine Test Negative Negative Hemoglobin A1c 12.5 H <5.7 % A1C Serum Osmolality 319 H 278-298 mOsm/kg Phosphorus Level 3.4 2.4-5.1 mg/dL Magnesium Level 1.7 1.6-2.6 mg/dL Beta-Hydroxybutyric Acid > 4.500 H < 0.4 mmol/L Imaging: CT abdomen pelvis IMPRESSION: 1. Mild wall thickening throughout the colon may reflect mild colitis. Assessment: Persistent nausea and vomiting DKA Marijuana use Plan: Discussed with Dr. Garcia - Pt will be scheduled for an EGD today 02/18/2025. Pt was informed of the risks (bleeding, infection, perforation, reaction to sedation medications and cardiopulmonary arrest) and benefit and is agreeable to undergo the procedures. NPO PT INR Discussed plan with patient and RN Thank you for this consult Date of Service: Feb 18, 2025 Billing Provider: MIKE LUX Common Visit Codes: CONSULT ONLY Consultation Codes: [id number] CONSULT <60MIN MIKE LUX Feb 18, 2025 13:20
[2025-02-18 14:33] LABS: INR 1.0 (0.9-1.15); Prothrombin Time 10.6 sec (9.3-11.8)
[2025-02-18] MEDS: METOCLOPRAMIDE HCL 5MG/ml INJ 2ml VIAL IV PRN (16:24)
[2025-02-18] MEDS: INSULIN DRIP 100 UNIT/100ML 100 ML IV SCH (19:44)
[2025-02-18] MEDS: MORPHINE SULFATE INJ 2 MG/ml SYRG IV PRN (21:09)
[2025-02-18] MEDS: METOCLOPRAMIDE HCL 5MG/ml INJ 2ml VIAL IV SCH (22:29)
[2025-02-19] VITALS (17 sets, daily range): BP systolic 113–159; BP diastolic 70–91; PULSE 72–94; RESP 9–19; TEMP 97.8–99.1; O2SAT 94–100
[2025-02-19] MEDS ORDERED: INSULIN DRIP 100 UNIT/100ML 100 ML IV SCH ×2 (00:15→01:45)
[2025-02-19] MEDS: INSULIN DRIP 100 UNIT/100ML 100 ML IV SCH (03:17)
[2025-02-19 05:30] LABS: Hematocrit 32.5 % (36.0-46.0); Hemoglobin 11.0 g/dL (12.2-16.2); Mean Corpuscular Hemoglobin 29.2 pg (28.0-32.0); Mean Corpuscular Volume 86.1 fL (80.0-100.0); Nucleated Red Blood Cells % 0.0 %
[2025-02-19 05:43] LABS: INR 1.03 (0.9-1.15); Partial Thromboplastin Time 23.6 SEC (24.5-34.5); Prothrombin Time 10.9 sec (9.3-11.8)
[2025-02-19 05:52] LABS: Alanine Aminotransferase 21 U/L (7-40); Albumin 3.8 g/dL (3.2-4.8); Anion Gap 13 (5-15); BUN/Creatinine Ratio 15.3 (10.0-20.0); Bilirubin, Total 1.1 mg/dL (0.2-1.0); Blood Urea Nitrogen 11 mg/dL (9-23); Magnesium 1.7 mg/dL (1.6-2.6); Sodium 142 mmol/L (136-145); Total Protein 6.6 g/dL (5.7-8.2)
[2025-02-19 05:59] LABS: Alkaline Phosphatase 121 U/L (46-116); Calcium 8.2 mg/dL (8.7-10.4); Carbon Dioxide 20 mmol/L (20-31); Chloride 109 mmol/L (98-107); Glucose 150 mg/dL (74-106); Potassium 2.7 mmol/L (3.5-5.1)
[2025-02-19] MEDS: POTASSIUM CHL 20 Meq TABLET PO ONE (07:00)
[2025-02-19] MEDS: POTASSIUM CHL 20MEQ/100ML 100 ML IV ONE (09:00)
[2025-02-19] MEDS: D5W/SOD CHL 0.45%/KCL 20MEQ 1,000 ML IV SCH (12:27)
[2025-02-19] MEDS ORDERED: LIDOCAINE VISCOUS 2% 15ML UD ONE (14:06)
[2025-02-19] MEDS ORDERED: fentaNYL CITRATE 100 MCG/2 ML VL ONE (14:24)
[2025-02-19] MEDS ORDERED: MIDAZOLAM HCL 2MG/2ML 2ml VIAL (1mg/ml) ONE (14:24)
[2025-02-19] MEDS ORDERED: PROPOFOL 10 MG/ML 20 ML IV ONE (14:29)
--- NOTE | 2025-02-19 14:42 | DVHOP2 ---
Operative Report DATE OF OPERATION: 02/19/25 PROCEDURE: Upper Endoscopy with biopsy. PREOPERATIVE INDICATION: The patient is a 39 -year-old female undergoing endoscopy for chronic GERD intractable nausea and vomiting POSTOPERATIVE DIAGNOSES: 1. 3 cm sliding-type hiatal hernia with grade B linear erosive esophagitis and esophageal ulcers extending into the distal 5 cm of the esophagus 2. Mild to moderate gastritis otherwise normal examination up to the 2nd and 3rd part of the duodenum PROCEDURE PERFORMED BY: Eric Garcia GI NURSE: Dennise SCOPE: Olympus videoendoscope. ASA CLASS: 3. PREOPERATIVE MEDICATIONS: Dr. Karo Angel PROCEDURE IN DETAIL: After obtaining an informed consent, the patient was placed on left lateral decubitus position. The patient was then sedated with the above medications. A bite block was placed between her teeth. The endoscope was then passed through the oropharynx, into the esophagus, and through the stomach and pylorus up to the second and third part of the duodenum. The endoscope was then withdrawn. The 2nd and 3rd part of the duodenum and the duodenal bulb were normal. Duodenal biopsies were obtained The pre-pyloric area antrum and body showed mild gastritis. Gastric biopsies were obtained. On retroflexion the fundus cardia and angularis were normal. The endoscope was then withdrawn into distal esophagus Patient had a 3 cm sliding-type hiatal hernia with moderate to severe erosive esophagitis with ulcers extending into the distal 5 cm of the esophagus Esophageal biopsies were obtained. The remaining distal and proximal esophagus and oropharynx were unremarkable The patient tolerated the procedure well without difficulty. COMPLICATIONS : None SPECIMENS: Duodenal biopsies Gastric biopsies Esophageal biopsies DISPOSITION: Transfer back to the floor Stable PLAN: 1. Await for biopsy result 2. Will place pt on Protonix 40 mg bid 3. Carafate suspension 1 g p.o. 4 times a day 4. Full liquid diet advance as tolerated 5. Monitor labs ERIC GARCIA MD Feb 19, 2025 14:41
[2025-02-19] MEDS: POTASSIUM PHOSPHATE 44 MEQ in D5W 5% 250 ML IV ONE (14:45)
--- NOTE | 2025-02-19 14:48 | DVHPN2 ---
Progress Note Date Seen: Feb 19, 2025 Medical Necessity Reason Pt with a Central, PICC or Fol: No Subjective Patient reports: No new complaints Review of Systems: HEENT:Normal, CVS:Normal, RESPIRATORY:Normal, GI:Normal, :Normal, MSK:Normal, NEURO:Normal Objective vital signs Vital Sign Date Time Temp Pulse Resp B/P (MAP) Pulse Ox O2 Delivery O2 Flow Rate FiO2 02/19/25 13:40 87 02/19/25 13:40 16 98 Room Air* 0 21 02/19/25 11:12 129/74 02/19/25 05:00 98.6 98.6 Total Intake and Output 02/18/25 02/18/25 02/19/25 15:00 23:00 07:00 Intake Total 617.25 ml 812.5 ml 709 ml Output Total 500 ml 200 ml Balance 617.25 ml 312.5 ml 509 ml medications Current Medications Medications Dose Ordered Sig/Petra Route Start Time Stop Time Status Last Admin Dose Admin Pantoprazole Sodium 40 mg BID IV 02/17/25 16:15 02/19/25 10:23 40 MG Insulin Glargine 10 units HS SC 02/17/25 22:00 Hold Diagnostic Test (Pha) 1 strip Q90MIN 02/17/25 21:00 02/19/25 13:39 1 STRIP Insulin Glargine 15 units DAILY SC 02/18/25 10:00 Hold 02/18/25 10:49 15 UNITS Dextrose 50 ml UD PRN IV 02/18/25 06:15 Morphine Sulfate 2 mg Q6HPRN PRN IV 02/18/25 10:45 02/19/25 10:24 2 MG Metoclopramide HCl 10 mg Q8HR IV 02/18/25 22:00 02/19/25 13:39 10 MG Insulin Human (Reg)/Sodium Chloride 100 ml @ 0.5 mls/hr Q24H IV 02/19/25 03:15 02/19/25 03:17 2 MLS/HR Potassium Chloride/Dextrose/ Sod Cl 1,000 ml @ 100 mls/hr Q10H IV 02/19/25 07:00 02/19/25 12:27 100 MLS/HR Sucralfate 1 gm QID@0600,1130,1700,2200 PO 02/19/25 17:00 UNV Examination: GENERAL:Normal, HEENT:Normal, NECK:Normal, LUNGS:Normal, CVS:Normal, ABDOMEN:Normal, MSK:Normal, SKIN:Normal, NEURO:Normal, :Normal laboratory and microbiology Laboratory Tests 02/19/25 04:57 Test 02/19/25 04:57 Range/Units Serum Glucose 150 H 74-106 mg/dL Microbiology Date/Time Source Procedure Growth Status 02/17/25 21:40 Nose MRSA Screen - Final Complete Problem List/Assessment/Plan Problem List/Assessment/Plan #1 DKA: , ssi, ivf, insulin drip #2 persistent vomiting: check lipase, ppi, gi , egd today #3 uncontrolled dm #4 acute renal failure ?vasomotor nephropathy #5 likely sirs due to dka #6 hypokalemia/hypophos/low Mg: replace Plan discussed with: Other (rn) My Orders My Orders Orders - SWETA LEOS MD Procedure Category Date Status Time Metoclopramide PHA 02/18/25 In Process Injection (Reglan 22:00 Communication Order ORDERS 02/18/25 Transmitted 17:51 Insulin Drip 100 PHA 02/19/25 In Process Unit/100ml (Myxredlin 03:15 Dietary Evaluation Review Comments: 1) Advance to [facility] 60gm diet as medically feasible 2) Monitor NPO status, lab values, weight trend, and I/O Expected Outcomes/Goals: To meet >75% estimated needs GI symptoms to improve Lab values to improve Fu 2-3 days Critical Care Time (mins): 37 (critical care time 37 mins) Date of Service: Feb 19, 2025 Billing Provider: SWETA LEOS MD Common Visit Codes: [id number] CARE 30-74 MIN SWETA LEOS MD Feb 19, 2025 14:48
[2025-02-19] MEDS ORDERED: DEXTROSE (50%) 50ML SYRG IV PRN (15:30)
[2025-02-19] MEDS: MAGNESIUM SULFATE 1GM/100ML 100 ML IV SCH (16:14)
[2025-02-19] MEDS: SUCRALFATE 1 GM/10 ML ORAL SUSP PO SCH (16:14)
[2025-02-19] MEDS: INSULIN LANTUS (GLARGINE) 1 /0.01ml (100units/ml) SC ONE (16:24)
[2025-02-19] MEDS: ACCU-CHEK COMFORT CURVE STRIP VI SCH (16:25)
[2025-02-19] MEDS: InsuLIN REG 1unit/0.01ml Soln (100units/ml) SC SCH (16:50)
[2025-02-20] VITALS (29 sets, daily range): BP systolic 102–143; BP diastolic 60–90; PULSE 62–91; RESP 10–27; TEMP 98.2–99.3; O2SAT 93–99
[2025-02-20 05:19] LABS: Hematocrit 31.5 % (36.0-46.0); Hemoglobin 10.8 g/dL (12.2-16.2); Mean Corpuscular Hemoglobin 29.2 pg (28.0-32.0); Mean Corpuscular Volume 85.4 fL (80.0-100.0); Nucleated Red Blood Cells % 0.1 %
[2025-02-20 05:22] LABS: Chloride 103 mmol/L (98-107); Sodium 138 mmol/L (136-145)
[2025-02-20 05:23] LABS: Anion Gap 10 (5-15); Carbon Dioxide 25 mmol/L (20-31)
[2025-02-20 05:25] LABS: Calcium 7.6 mg/dL (8.7-10.4); Potassium 2.8 mmol/L (3.5-5.1)
[2025-02-20 05:28] LABS: BUN/Creatinine Ratio 8.8 (10.0-20.0)
[2025-02-20 05:29] LABS: Magnesium 1.9 mg/dL (1.6-2.6)
[2025-02-20 05:37] LABS: Blood Urea Nitrogen 5 mg/dL (9-23); Glucose 180 mg/dL (74-106)
[2025-02-20] MEDS: POTASSIUM EFFERVESENT TAB 25 MEQ GT ONE (07:30)
[2025-02-20] MEDS: POTASSIUM CHLORIDE 40 MEQ, LIDOCAINE 1% (LOCAL ANESTH.) 4 ML in SODIUM CHL 0.9% 250 ML IV ONE (08:54)
[2025-02-20] MEDS: INSULIN LANTUS (GLARGINE) 1 /0.01ml (100units/ml) SC SCH (10:17)
--- NOTE | 2025-02-20 11:18 | DVHPN2 ---
Progress Note Date Seen: Feb 20, 2025 Medical Necessity Reason Pt with a Central, PICC or Fol: No Subjective Patient reports: No new complaints Review of Systems: HEENT:Normal, CVS:Normal, RESPIRATORY:Normal, GI:Normal, :Normal, MSK:Normal, NEURO:Normal Objective vital signs Vital Sign Date Time Temp Pulse Resp B/P (MAP) Pulse Ox O2 Delivery O2 Flow Rate FiO2 02/20/25 10:02 88 18 138/90 02/20/25 08:20 95 Room Air* 0 21 02/20/25 04:00 99.1 99.1 Total Intake and Output 02/19/25 02/19/25 02/20/25 15:00 23:00 07:00 Intake Total 118.0 ml 760 ml 440 ml Balance 118.0 ml 760 ml 440 ml medications Current Medications Medications Dose Ordered Sig/Petra Route Start Time Stop Time Status Last Admin Dose Admin Pantoprazole Sodium 40 mg BID IV 02/17/25 16:15 02/20/25 10:05 40 MG Dextrose 50 ml UD PRN IV 02/18/25 06:15 Cancel Morphine Sulfate 2 mg Q6HPRN PRN IV 02/18/25 10:45 02/20/25 10:02 2 MG Metoclopramide HCl 10 mg Q8HR IV 02/18/25 22:00 02/20/25 05:07 10 MG Potassium Chloride/Dextrose/ Sod Cl 1,000 ml @ 100 mls/hr Q10H IV 02/19/25 07:00 02/20/25 03:35 100 MLS/HR Sucralfate 1 gm QID@0600,1130,1700,2200 PO 02/19/25 17:00 02/20/25 05:06 1 GM Insulin Glargine 10 units DAILY@1000 SC 02/20/25 10:00 02/20/25 10:17 10 UNITS Diagnostic Test (Pha) 1 strip IQ4HR 02/19/25 16:00 02/20/25 08:11 1 STRIP Insulin Human Regular IQ4HR SC 02/19/25 16:00 02/20/25 08:29 12 UNITS Dextrose 50 ml UD PRN IV 02/19/25 15:30 Examination: GENERAL:Normal, HEENT:Normal, NECK:Normal, LUNGS:Normal, CVS:Normal, ABDOMEN:Normal, MSK:Normal, SKIN:Normal, NEURO:Normal, :Normal laboratory and microbiology Laboratory Tests 02/20/25 04:59 Test 02/20/25 04:59 Range/Units Serum Glucose 180 H 74-106 mg/dL Microbiology Date/Time Source Procedure Growth Status 02/17/25 21:40 Nose MRSA Screen - Final Complete Problem List/Assessment/Plan Problem List/Assessment/Plan #1 DKA: , ssi, ivf, lantus #2 persistent vomiting: check lipase, ppi, gi , esophagitis/ulcer #3 uncontrolled dm #4 acute renal failure ?vasomotor nephropathy #5 likely sirs due to dka #6 hypokalemia/hypophos/low Mg: replace unstable for transfer Plan discussed with: Patient My Orders My Orders Orders - SWETA LEOS MD Procedure Category Date Status Time Insulin Lantus PHA 02/20/25 In Process (Glargine) (Lantus) 10:00 Glucose Blood PHA 02/19/25 In Process (Accu-Chek Comfort 16:00 Insulin R (Human) PHA 02/19/25 In Process (Insulin R) 16:00 Dextrose 50% Syringe PHA 02/19/25 In Process 15:30 Potassium Chloride PHA 02/20/25 Logged (Potassium Chloride). 11:00 Dietary Evaluation Review Comments: 1) Advance to [facility] 60gm diet as medically feasible 2) Monitor NPO status, lab values, weight trend, and I/O Expected Outcomes/Goals: To meet >75% estimated needs GI symptoms to improve Lab values to improve Fu 2-3 days Date of Service: Feb 20, 2025 Billing Provider: SWETA LEOS MD Common Visit Codes: [id number] INP/OBS CARE(HIGH) SWETA LEOS MD Feb 20, 2025 11:18
[2025-02-20] MEDS: PROCHLORPERAZINE EDISYLATE 5 MG/ML 2ML VIAL IV ONE (11:52)
[2025-02-20] MEDS: MAGNESIUM SULFATE 1GM/100ML 100 ML IV SCH (12:00)
[2025-02-20] MEDS: SOD CHL 0.9%/ KCL 20MEQ 1,000 ML IV SCH (13:11)
[2025-02-20] MEDS: LORazepam 2MG/ML-1ML VIAL IV ONE (14:34)
[2025-02-20] MEDS: POTASSIUM CHLORIDE 60 MEQ, LIDOCAINE 1% (LOCAL ANESTH.) 6 ML in SODIUM CHL 0.9% 500 ML IV ONE (14:34)
--- NOTE | 2025-02-20 15:11 | DVHPN2 ---
Progress Note Date Seen: Feb 20, 2025 Resident Creating Document: RAKESH JAUREGUI RESIDENT Medical Necessity Reason Pt with a Central, PICC or Fol: No Subjective Review of Systems Patient is a 39-year-old female with past medical history of type 1 diabetes, who initially came to the ER for symptoms related to hyperglycemia and her running out of her insulin. GI was consulted for "persistent vomiting". Patient underwent upper endoscopy with biopsy which showed 3 cm sliding-type hiatal hernia with grade B linear erosive esophagitis and esophageal ulcers extending into the distal 5 cm of the esophagus. [id number] gastritis otherwise normal examination up to the 2nd and 3rd part of duodenum. Today patient seen and examined at bedside with mother present at bedside Earlier in the day patient reported persistent nausea, however, at the time of my evaluation patient notes nausea has now improved after receiving prochlorperazine and lorazepam Patient is able to tolerate Jell-O and some crackers as noted at bedside Objective vital signs Vital Sign Date Time Temp Pulse Resp B/P (MAP) Pulse Ox O2 Delivery O2 Flow Rate FiO2 02/20/25 10:32 72 16 122/80 02/20/25 08:20 95 Room Air* 0 21 02/20/25 04:00 99.1 99.1 Total Intake and Output 02/19/25 02/19/25 02/20/25 15:00 23:00 07:00 Intake Total 118.0 ml 760 ml 440 ml Balance 118.0 ml 760 ml 440 ml medications Current Medications Medications Dose Ordered Sig/Petra Route Start Time Stop Time Status Last Admin Dose Admin Pantoprazole Sodium 40 mg BID IV 02/17/25 16:15 02/20/25 10:05 40 MG Dextrose 50 ml UD PRN IV 02/18/25 06:15 Cancel Morphine Sulfate 2 mg Q6HPRN PRN IV 02/18/25 10:45 02/20/25 10:02 2 MG Metoclopramide HCl 10 mg Q8HR IV 02/18/25 22:00 02/20/25 05:07 10 MG Sucralfate 1 gm QID@0600,1130,1700,2200 PO 02/19/25 17:00 02/20/25 12:00 1 GM Insulin Glargine 10 units DAILY@1000 SC 02/20/25 10:00 02/20/25 10:17 10 UNITS Diagnostic Test (Pha) 1 strip IQ4HR 02/19/25 16:00 02/20/25 12:09 1 STRIP Insulin Human Regular IQ4HR SC 02/19/25 16:00 02/20/25 12:15 6 UNITS Dextrose 50 ml UD PRN IV 02/19/25 15:30 Potassium Chloride/Sodium Chloride 1,000 ml @ 100 mls/hr Q10H IV 02/20/25 11:15 02/20/25 13:11 100 MLS/HR Lorazepam 0.5 mg Q12HP PO 02/20/25 22:00 Examination General Appearance: Cooperative. Well developed. Well nourished. Dry mucous membranes, tired appearing Head Exam: Normal inspection Neck Exam: Normal inspection. Non-tender. Normal alignment Pulmonary/Respiratory: Chest non-tender. Clear bilateral breath sounds, no crackles, no wheezing. Cardiovascular/Chest: Regular rate and rhythm. No murmurs. No JVD. Peripheral Pulses: 2+ Pedal (R). 2+ Pedal (L) Abdominal Exam: Normal bowel sounds. Soft. normal abdomen, no visible veins, Nontender. No hepatospenomegaly. No masses Ankle Exam: Negative ankle edema Neuro/Mental Status: A&O x4. Coherent. Skin Exam: Normal inspection. Normal color. Warm. Dry laboratory and microbiology Laboratory Tests 02/20/25 04:59 Test 02/20/25 04:59 Range/Units Serum Glucose 180 H 74-106 mg/dL Microbiology Date/Time Source Procedure Growth Status 02/17/25 21:40 Nose MRSA Screen - Final Complete Labs and/or images reviewed: Labs reviewed by me, Image(s) reviewed by me Problem List/Assessment/Plan Problem List/Assessment/Plan Intractable nausea and vomiting possibly due to DKA Diabetic ketoacidosis Erosive esophagitis Esophageal ulcers extending into distal esophagus [id number] gastritis Type 2 diabetes, uncontrolled on insulin dependent MARCELA likely hemodynamically mediated/VMN, now improved Hypokalemia Hypocalcemia Plan: Continue hydration IV Protonix 40 mg b.i.d. Sucralfate 1 g q.i.d. IV metoclopramide Q 8 hours Previously 0.5 mg lorazepam has helped with nausea, can consider on as needed basis for persistent nausea Advance diet as tolerated Thank you so much for the opportunity to consult on your patient. GI team will follow the patient. In case of any questions or concerns please feel free to reach out. Plan discussed with Dr. Garcia, the patient and patient's mother at bedside. Plan discussed with: Patient, Other (Patient's mother, RN) Dietary Evaluation Review Comments: 1) Advance to [facility] 60gm diet as medically feasible 2) Monitor NPO status, lab values, weight trend, and I/O Expected Outcomes/Goals: To meet >75% estimated needs GI symptoms to improve Lab values to improve Fu 2-3 days RAKESH JAUREGUI RESIDENT Feb 20, 2025 15:11
[2025-02-20] MEDS: PROCHLORPERAZINE EDISYLATE 5 MG/ML 2ML VIAL IV SCH (22:04)
[2025-02-20] MEDS: LORazepam 0.5 MG TAB PO SCH (22:04)
[2025-02-21] VITALS (16 sets, daily range): BP systolic 99–154; BP diastolic 66–86; PULSE 62–103; RESP 9–25; TEMP 97.2–98.6; O2SAT 93–100
[2025-02-21 02:40] LABS: Hematocrit 32.1 % (36.0-46.0); Hemoglobin 11.0 g/dL (12.2-16.2); Mean Corpuscular Hemoglobin 29.1 pg (28.0-32.0); Mean Corpuscular Volume 85.2 fL (80.0-100.0); Nucleated Red Blood Cells % 0.1 %
[2025-02-21 02:59] LABS: Alanine Aminotransferase 29 U/L (7-40); Albumin 3.2 g/dL (3.2-4.8); Alkaline Phosphatase 104 U/L (46-116); Anion Gap 8 (5-15); BUN/Creatinine Ratio 9.6 (10.0-20.0); Bilirubin, Total 1.1 mg/dL (0.2-1.0); Blood Urea Nitrogen < 5 mg/dL (9-23); Calcium 7.4 mg/dL (8.7-10.4); Carbon Dioxide 25 mmol/L (20-31); Chloride 107 mmol/L (98-107); Glucose 123 mg/dL (74-106); Magnesium 2.1 mg/dL (1.6-2.6); Potassium 3.3 mmol/L (3.5-5.1); Sodium 140 mmol/L (136-145); Total Protein 5.7 g/dL (5.7-8.2)
[2025-02-21] MEDS: POTASSIUM EFFERVESENT TAB 25 MEQ PO ONE (03:52)
--- NOTE | 2025-02-21 11:10 | DVHPN2 ---
Progress Note Date Seen: Feb 21, 2025 Resident Creating Document: RAKESH JAUREGUI RESIDENT Medical Necessity Reason Pt with a Central, PICC or Fol: No Subjective Review of Systems Patient is a 39-year-old female with past medical history of type 1 diabetes, who initially came to the ER for symptoms related to hyperglycemia and her running out of her insulin. GI was consulted for "persistent vomiting". Patient underwent upper endoscopy with biopsy which showed 3 cm sliding-type hiatal hernia with grade B linear erosive esophagitis and esophageal ulcers extending into the distal 5 cm of the esophagus. Wizl-oy-gbjzzhuo gastritis otherwise normal examination up to the 2nd and 3rd part of duodenum. Today patient seen and examined at bedside with mother present at bedside Denies nausea, however continues to have minimal appetite and oral intake Is able to tolerate some Jell-O and crackers only, 1 soft BM overnight Objective vital signs Vital Sign Date Time Temp Pulse Resp B/P (MAP) Pulse Ox O2 Delivery O2 Flow Rate FiO2 02/21/25 10:00 65 02/21/25 10:00 17 96 Room Air* 0 21 02/21/25 08:00 98.6 142/86 (104) 98.6 Total Intake and Output 02/20/25 02/20/25 02/21/25 15:00 23:00 07:00 Intake Total 1810 ml 800 ml 1550 ml Balance 1810 ml 800 ml 1550 ml medications Current Medications Medications Dose Ordered Sig/Petra Route Start Time Stop Time Status Last Admin Dose Admin Pantoprazole Sodium 40 mg BID IV 02/17/25 16:15 02/20/25 22:04 40 MG Dextrose 50 ml UD PRN IV 02/18/25 06:15 Cancel Morphine Sulfate 2 mg Q6HPRN PRN IV 02/18/25 10:45 02/20/25 10:02 2 MG Sucralfate 1 gm QID@0600,1130,1700,2200 PO 02/19/25 17:00 02/21/25 06:26 1 GM Insulin Glargine 10 units DAILY@1000 SC 02/20/25 10:00 02/20/25 10:17 10 UNITS Diagnostic Test (Pha) 1 strip IQ4HR 02/19/25 16:00 02/21/25 08:30 1 STRIP Insulin Human Regular IQ4HR SC 02/19/25 16:00 02/21/25 08:31 3 UNITS Dextrose 50 ml UD PRN IV 02/19/25 15:30 Potassium Chloride/Sodium Chloride 1,000 ml @ 100 mls/hr Q10H IV 02/20/25 11:15 02/20/25 21:15 100 MLS/HR Lorazepam 0.5 mg Q12HP PO 02/20/25 22:00 02/20/25 22:04 0.5 MG Prochlorperazine Edisylate 5 mg Q8H IV 02/20/25 22:00 02/21/25 06:27 5 MG Examination General Appearance: Cooperative. Well developed. Well nourished. Dry mucous membranes, tired appearing Head Exam: Normal inspection Neck Exam: Normal inspection. Non-tender. Normal alignment Pulmonary/Respiratory: Chest non-tender. Clear bilateral breath sounds, no crackles, no wheezing. Cardiovascular/Chest: Regular rate and rhythm. No murmurs. No JVD. Peripheral Pulses: 2+ Pedal (R). 2+ Pedal (L) Abdominal Exam: Normal bowel sounds. Soft. normal abdomen, no visible veins, Nontender. No hepatospenomegaly. No masses Ankle Exam: Negative ankle edema Neuro/Mental Status: A&O x4. Coherent. laboratory and microbiology Laboratory Tests 02/21/25 02:25 Test 02/21/25 02:25 Range/Units Serum Glucose 123 H 74-106 mg/dL Microbiology Date/Time Source Procedure Growth Status 02/17/25 21:40 Nose MRSA Screen - Final Complete Labs and/or images reviewed: Labs reviewed by me, Image(s) reviewed by me Problem List/Assessment/Plan Problem List/Assessment/Plan Intractable nausea and vomiting possibly due to DKA Diabetic ketoacidosis Erosive esophagitis Esophageal ulcers extending into distal esophagus [id number]-bg-[id number] gastritis Type 2 diabetes, uncontrolled on insulin dependent MARCELA likely hemodynamically mediated/VMN, now improved Hypokalemia Hypocalcemia Plan: Continue hydration IV Protonix 40 mg b.i.d. Sucralfate 1 g q.i.d. IV metoclopramide Q 8 hours Previously 0.5 mg lorazepam has helped with nausea, can consider on as needed basis for persistent nausea Advance diet as tolerated Thank you so much for the opportunity to consult on your patient. GI team will follow the patient. In case of any questions or concerns please feel free to reach out. Plan discussed with Dr. Garcia, the patient and patient's mother at bedside. Plan discussed with: Patient, Other (RN) Dietary Evaluation Review Comments: 1) Advance to [facility] [place] 60gm diet as medically feasible 2) Monitor NPO status, lab values, weight trend, and I/O Expected Outcomes/Goals: To meet >75% estimated needs GI symptoms to improve Lab values to improve Fu 2-3 days RAKESH JAUREGUI RESIDENT Feb 21, 2025 11:10
[2025-02-21] MEDS ORDERED: PROCHLORPERAZINE EDISYLATE 5 MG/ML 2ML VIAL IV PRN (15:15)
--- NOTE | 2025-02-21 15:18 | DVHPN2 ---
Progress Note Date Seen: Feb 21, 2025 Medical Necessity Reason Pt with a Central, PICC or Fol: No Subjective Patient reports: No new complaints Review of Systems: HEENT:Normal, CVS:Normal, RESPIRATORY:Normal, GI:Normal, :Normal, MSK:Normal, NEURO:Normal Objective vital signs Vital Sign Date Time Temp Pulse Resp B/P (MAP) Pulse Ox O2 Delivery O2 Flow Rate FiO2 02/21/25 13:46 78 16 138/85 02/21/25 12:56 97.2 99 97.2 02/21/25 10:00 Room Air* 0 21 Total Intake and Output 02/20/25 02/20/25 02/21/25 15:00 23:00 07:00 Intake Total 1810 ml 800 ml 1550 ml Balance 1810 ml 800 ml 1550 ml medications Current Medications Medications Dose Ordered Sig/Petra Route Start Time Stop Time Status Last Admin Dose Admin Pantoprazole Sodium 40 mg BID IV 02/17/25 16:15 02/21/25 11:07 40 MG Dextrose 50 ml UD PRN IV 02/18/25 06:15 Cancel Morphine Sulfate 2 mg Q6HPRN PRN IV 02/18/25 10:45 02/21/25 13:46 2 MG Sucralfate 1 gm QID@0600,1130,1700,2200 PO 02/19/25 17:00 02/21/25 11:07 1 GM Insulin Glargine 10 units DAILY@1000 SC 02/20/25 10:00 02/21/25 11:27 10 UNITS Diagnostic Test (Pha) 1 strip IQ4HR 02/19/25 16:00 02/21/25 13:19 1 STRIP Insulin Human Regular IQ4HR SC 02/19/25 16:00 02/21/25 13:48 9 UNITS Dextrose 50 ml UD PRN IV 02/19/25 15:30 Potassium Chloride/Sodium Chloride 1,000 ml @ 100 mls/hr Q10H IV 02/20/25 11:15 02/20/25 21:15 100 MLS/HR Lorazepam 0.5 mg Q12HP PO 02/20/25 22:00 02/21/25 11:08 0.5 MG Prochlorperazine Edisylate 5 mg Q8H IV 02/20/25 22:00 02/21/25 06:27 5 MG Examination: GENERAL:Normal, HEENT:Normal, NECK:Normal, LUNGS:Normal, CVS:Normal, ABDOMEN:Normal, MSK:Normal, SKIN:Normal, NEURO:Normal, :Normal laboratory and microbiology Laboratory Tests 02/21/25 02:25 Test 02/21/25 02:25 Range/Units Serum Glucose 123 H 74-106 mg/dL Microbiology Date/Time Source Procedure Growth Status 02/17/25 21:40 Nose MRSA Screen - Final Complete Problem List/Assessment/Plan Problem List/Assessment/Plan #1 DKA: , ssi, ivf, lantus #2 persistent vomiting: check lipase, ppi, gi , esophagitis/ulcer #3 uncontrolled dm #4 acute renal failure ?vasomotor nephropathy #5 likely sirs due to dka #6 hypokalemia/hypophos/low Mg: replace Plan discussed with: Patient My Orders My Orders Orders - SWETA LEOS MD Procedure Category Date Status Time Prochlorperazine Inj PHA 02/20/25 In Process (Compazine Inj) 22:00 Insulin Lantus PHA 02/22/25 Verified (Glargine) (Lantus) 10:00 Prochlorperazine Inj PHA 02/21/25 Verified (Compazine Inj) 15:15 Consistent DIET 02/21/25 Verified Carb(Ccho)Diabetes Dinner Basic Metabolic Panel LAB 02/22/25 Verified 06:00 Magnesium LAB 02/22/25 Verified 05:00 Discontinue Tele TENA 02/21/25 Verified 15:17 Transfer Orders XFER 02/21/25 Verified 15:17 Dietary Evaluation Review Comments: 1) Advance to [facility] [place] 60gm diet as medically feasible 2) Monitor NPO status, lab values, weight trend, and I/O Expected Outcomes/Goals: To meet >75% estimated needs GI symptoms to improve Lab values to improve Fu 2-3 days Date of Service: Feb 21, 2025 Billing Provider: SWETA LEOS MD Common Visit Codes: 72415-[id number] INP/OBS CARE(HIGH) SWETA LEOS MD Feb 21, 2025 15:18
[2025-02-22 01:00] VITALS: BP 103/71; PULSE 88; RESP 16; TEMP 98.1; O2SAT 97
[2025-02-22 05:00] VITALS: BP 115/77; PULSE 74; RESP 18; TEMP 98.3; O2SAT 95
[2025-02-22 09:00] VITALS: BP 122/75; PULSE 81; RESP 20; TEMP 98.6; O2SAT 99
[2025-02-22 09:44] LABS: Potassium 4.0 mmol/L (3.5-5.1)
[2025-02-22 09:45] LABS: Anion Gap 9 (5-15); Carbon Dioxide 24 mmol/L (20-31)
[2025-02-22 09:46] LABS: Calcium 8.5 mg/dL (8.7-10.4); Chloride 98 mmol/L (98-107); Sodium 131 mmol/L (136-145)
[2025-02-22 09:51] LABS: BUN/Creatinine Ratio 7.4 (10.0-20.0); Magnesium 1.8 mg/dL (1.6-2.6)
[2025-02-22 09:58] LABS: Blood Urea Nitrogen 5 mg/dL (9-23); Glucose 371 mg/dL (74-106)
[2025-02-22] MEDS: INSULIN LANTUS (GLARGINE) 1 /0.01ml (100units/ml) SC SCH (10:24)
--- NOTE | 2025-02-22 11:14 | DVHPN2 ---
Progress Note Date Seen: Feb 22, 2025 Resident Creating Document: RAKESH JAUREGUI RESIDENT Medical Necessity Reason Pt with a Central, PICC or Fol: No Subjective Review of Systems Patient is a 39-year-old female with past medical history of type 1 diabetes, who initially came to the ER for symptoms related to hyperglycemia and her running out of her insulin. GI was consulted for "persistent vomiting". Patient underwent upper endoscopy with biopsy which showed 3 cm sliding-type hiatal hernia with grade B linear erosive esophagitis and esophageal ulcers extending into the distal 5 cm of the esophagus. Qhlz-hj-xzltxaye gastritis otherwise normal examination up to the 2nd and 3rd part of duodenum. Today patient seen and examined at bedside with mother present at bedside Denies any nausea, denies vomiting, denies any GI symptoms. Is able to tolerate diet, reports having breakfast. Objective vital signs Vital Sign Date Time Temp Pulse Resp B/P (MAP) Pulse Ox O2 Delivery O2 Flow Rate FiO2 02/22/25 09:00 98.6 81 20 122/75 (91) 99 98.6 02/21/25 20:00 Room Air* 0 21 Total Intake and Output 02/21/25 02/21/25 02/22/25 15:00 23:00 07:00 Intake Total 200 ml 230 ml 700 ml Balance 200 ml 230 ml 700 ml medications Current Medications Medications Dose Ordered Sig/Petra Route Start Time Stop Time Status Last Admin Dose Admin Pantoprazole Sodium 40 mg BID IV 02/17/25 16:15 02/22/25 10:18 40 MG Dextrose 50 ml UD PRN IV 02/18/25 06:15 Cancel Morphine Sulfate 2 mg Q6HPRN PRN IV 02/18/25 10:45 02/22/25 01:14 2 MG Sucralfate 1 gm QID@0600,1130,1700,2200 PO 02/19/25 17:00 02/22/25 06:25 1 GM Diagnostic Test (Pha) 1 strip IQ4HR 02/19/25 16:00 02/22/25 10:09 1 STRIP Insulin Human Regular IQ4HR SC 02/19/25 16:00 02/22/25 10:13 15 UNITS Dextrose 50 ml UD PRN IV 02/19/25 15:30 Potassium Chloride/Sodium Chloride 1,000 ml @ 100 mls/hr Q10H IV 02/20/25 11:15 02/21/25 16:59 100 MLS/HR Lorazepam 0.5 mg Q12HP PO 02/20/25 22:00 02/22/25 10:18 0.5 MG Insulin Glargine 20 units DAILY@1000 SC 02/22/25 10:00 02/22/25 10:24 20 UNITS Prochlorperazine Edisylate 5 mg Q8H PRN IV 02/21/25 15:15 Examination General Appearance: Cooperative. Well developed. Well nourished. Dry mucous membranes, tired appearing Head Exam: Normal inspection Neck Exam: Normal inspection. Non-tender. Normal alignment Pulmonary/Respiratory: Chest non-tender. Clear bilateral breath sounds, no crackles, no wheezing. Cardiovascular/Chest: Regular rate and rhythm. No murmurs. No JVD. Peripheral Pulses: 2+ Pedal (R). 2+ Pedal (L) Abdominal Exam: Normal bowel sounds. Soft. normal abdomen, no visible veins, Nontender. No hepatospenomegaly. No masses Ankle Exam: Negative ankle edema Neuro/Mental Status: A&O x4. Coherent. laboratory and microbiology Laboratory Tests 02/22/25 09:22 02/21/25 02:25 Test 02/22/25 09:22 Range/Units Serum Glucose 371 H 74-106 mg/dL Microbiology Date/Time Source Procedure Growth Status 02/17/25 21:40 Nose MRSA Screen - Final Complete Labs and/or images reviewed: Labs reviewed by me, Image(s) reviewed by me Problem List/Assessment/Plan Problem List/Assessment/Plan Intractable nausea and vomiting possibly due to DKA Diabetic ketoacidosis Erosive esophagitis Esophageal ulcers extending into distal esophagus [id number] gastritis Type 2 diabetes, uncontrolled on insulin dependent MARCELA likely hemodynamically mediated/VMN, now improved Hypokalemia Hypocalcemia Plan: Continue hydration IV Protonix 40 mg b.i.d. Sucralfate 1 g q.i.d. IV metoclopramide Q 8 hours Previously 0.5 mg lorazepam has helped with nausea, can consider on as needed basis for persistent nausea Advance diet as tolerated Thank you so much for the opportunity to consult on your patient. GI team will follow the patient. In case of any questions or concerns please feel free to reach out. Plan discussed with Dr. Garcia, the patient and patient's mother at bedside. Plan discussed with: Patient, Other (Mother, RN) Dietary Evaluation Review Comments: 1) [facility] as medically feasible 2) Monitor NPO status, lab values, weight trend, and I/O Expected Outcomes/Goals: To meet >75% estimated needs GI symptoms to improve Lab values to improve Fu 2-3 days RAKESH JAUREGUI RESIDENT Feb 22, 2025 11:14
[2025-02-22 13:00] VITALS: BP 123/85; PULSE 67; RESP 20; TEMP 97; O2SAT 99
[2025-02-22] MEDS ORDERED: INSULIN LISPRO (HUMAN) 100 UNITS/ML ML SC ONE (14:30)
[2025-02-22] MEDS ORDERED: BLOO1KIT60 XX (14:30)
[2025-02-22] MEDS ORDERED: GLUC1TES63 VI (14:30)
[2025-02-22] MEDS ORDERED: PANT40TA2 PO (14:30)
[2025-02-22] MEDS ORDERED: INSU100I54 SC (14:30)
[2025-02-22] MEDS ORDERED: ALCO70PA28 XX (14:30)
[2025-02-22] MEDS ORDERED: INSU-450 XX (14:30)
[2025-02-22] MEDS ORDERED: LANC-347 XX (14:30)
[2025-02-22] MEDS ORDERED: BLOO-200 XX (14:30)
[2025-02-22] MEDS ORDERED: SUCR1SUS26 PO (14:30)
[2025-02-22] MEDS ORDERED: INSUINJ37 SC (14:30)
[2025-02-22] MEDS ORDERED: DULO20CA PO (15:46)
[2025-02-22 18:37] VITALS: TEMP 36.1
--- NOTE | 2025-02-22 18:39 | DVHDS2 ---
Discharge Summary Date of Admission Feb 17, 2025 at 16:10 Date of Discharge: Feb 22, 2025 Labs/Diagnostic Data: Laboratory Results Test 02/22/25 17:43 02/22/25 09:22 02/21/25 02:25 02/20/25 04:59 POC Glucose 78 mg/dl (70-106) Sodium Level 131 mmol/L (136-145) Potassium Level 4.0 mmol/L (3.5-5.1) Chloride Level 98 mmol/L (98-107) Carbon Dioxide Level 24 mmol/L (20-31) Anion Gap 9 (5-15) Blood Urea Nitrogen 5 mg/dL (9-23) Creatinine 0.68 mg/dL (0.550-1.02) Glomerular Filtration Rate Calc 113 mL/min (>90) BUN/Creatinine Ratio 7.4 (10.0-20.0) Serum Glucose 371 mg/dL (74-106) Calcium Level 8.5 mg/dL (8.7-10.4) Magnesium Level 1.8 mg/dL (1.6-2.6) White Blood Count 9.4 10^3/uL (4.4-10.8) Red Blood Count 3.77 10^6/uL (4.0-5.20) Hemoglobin 11.0 g/dL (12.2-16.2) Hematocrit 32.1 % (36.0-46.0) Mean Corpuscular Volume 85.2 fL (80.0-100.0) Mean Corpuscular Hemoglobin 29.1 pg (28.0-32.0) Mean Corpuscular Hemoglobin Concent 34.1 g/dL (32.0-36.0) Red Cell Distribution Width 15.4 % (11.8-14.3) Platelet Count 187 10^3/uL (140-450) Mean Platelet Volume 9.3 fL (6.9-10.8) Neutrophils (%) (Auto) 48.5 % (37.0-80.0) Lymphocytes (%) (Auto) 42.9 % (10.0-50.0) Monocytes (%) (Auto) 8.1 % (0.0-12.0) Eosinophils (%) (Auto) 0.3 % (0.0-7.0) Basophils (%) (Auto) 0.2 % (0.0-2.0) Neutrophils # (Auto) 4.5 10 ^3/uL (1.6-8.6) Lymphocytes # (Auto) 4.0 10 ^3/uL (0.4-5.4) Monocytes # (Auto) 0.8 10 ^3/uL (0-1.3) Eosinophils # (Auto) 0 10 ^3/uL (0-0.8) Basophils # (Auto) 0 10 ^3/uL (0-0.2) Nucleated Red Blood Cells 0.1 % Total Bilirubin 1.1 mg/dL (0.2-1.0) Aspartate Amino Transferase (AST) 45 U/L (13-40) Alanine Aminotransferase (ALT) 29 U/L (7-40) Alkaline Phosphatase 104 U/L (46-116) Total Protein 5.7 g/dL (5.7-8.2) Albumin 3.2 g/dL (3.2-4.8) Phosphorus Level 3.0 mg/dL (2.4-5.1) Test 02/19/25 04:57 02/18/25 09:20 02/17/25 15:35 02/17/25 15:00 Prothrombin Time 10.9 sec (9.3-11.8) Prothrombin Time INR 1.03 (0.9-1.15) Activated Partial Thromboplast Time 23.6 SEC (24.5-34.5) Lipase 17 U/L (12-53) Blood Gas Specimen Type Arterial Blood Gas Sample Site Right radial Blood Gas Patient Temperature 37.0 Arterial Blood Date Drawn [id number] Arterial Blood pH 7.305 (7.350-7.450) Arterial Blood Partial Pressure CO2 19.9 mmHg (32.0-45.0) Arterial Blood Partial Pressure O2 100.9 mmHg (83.0-108.0) Arterial Blood HCO3 9.7 mmol/L (21.0-28.0) Arterial Blood Oxygen Saturation 97.4 % (94.0-98.0) Arterial Blood Base Excess -14.4 mmol/L (-2.0-3.0) Arterial Blood Oxyhemoglobin 96.3 % (94.0-98.0) Arterial Blood Carboxyhemoglobin 0.5 % (0.5-1.5) Arterial Blood Methemoglobin 0.6 % (0.0-1.5) Erich Test Yes Blood Gas Total Hemoglobin 13.40 g/dL (12.0-16.0) Blood Gas Modality Room air FiO2 % 21.0 Blood Gas Critical Value Read Back Yes Blood Gas Notified Whom geraldine Shen Blood Gas Notified Time [id number] Blood Gas Notified By [employer] radha vale Urine Color Light-yellow (Yellow) Urine Clarity Clear (Clear) Urine pH 6.0 (5.0-9.0) Urine Specific Marty 1.021 (1.001-1.035) Urine Protein 1+ (Negative) Urine Ketones 4+ (Negative) Urine Blood Negative /uL (Negative) Urine Nitrite Negative (Negative) Urine Bilirubin Negative (Negative) Urine Urobilinogen 2 mg/dL (Negative) Urine Leukocyte Esterase 1+ /uL (Negative) Urine RBC 1 /hpf (0 - 4) Urine Microscopic WBC 3 /HPF (0-5) Urine Squamous Epithelial Cells Few /hpf (<5) Urine Bacteria Few /hpf (None Seen) Urine Hyaline Casts Few /lpf (0 - 2) Urine Mucus Few (None Seen) Urine Glucose 4+ mg/dL (Normal) Urine Test Negative (Negative) Test 02/17/25 14:10 Hemoglobin A1c 12.5 % A1C (<5.7) Serum Osmolality 319 mOsm/kg (278-298) Beta-Hydroxybutyric Acid > 4.500 mmol/L (< 0.4) Other Laboratory Tests 02/22/25 09:22 02/21/25 02:25 Brief Hx & Hospital Course: 39 yo F with T1DM admitted for DKA, started on insulin drip with fluid and potassium repletion. aptient afterwards have persistent vomiting, seen by GI, treated for esophagitis. patient had DKA because she ran out of meds. will dc with lantus and lispro, follow up with dc clinic for blood culture result, patient want to go home but have slight concern of pain from iv site. Condition at Discharge: Good Final Diagnosis/Problems List 1 DKA: , ssi, ivf, lantus #2 persistent vomiting: check lipase, ppi, gi , esophagitis/ulcer #3 uncontrolled dm #4 acute renal failure ?vasomotor nephropathy #5 likely sirs due to dka #6 hypokalemia/hypophos/low Mg: replace Discharge Disposition: Home Discharge Instruct/Medications Diet: Consistent carbohydrate, Cardiac 2g Na,low cholest Activity: No Restrictions, As Tolerated Follow Up/Referral: dc clinic tuesday AM Medications: insulin lantus lispro keflex Scheduled Duloxetine Hcl (Cymbalta), 1 CAP PO DAILY Glucose Blood (Glucose Meter Test Strips), 1 FELIPA ACHS Insulin Glargine (Lantus Solostar), 30 UNIT SC DAILY Insulin Lispro (Insulin Lispro Kwikpen), 10 UNIT SC AC Pantoprazole Sodium Sesquihydr (Protonix), 40 MG PO DAILY Sucralfate (Carafate Susp), 10 ML PO QID Discontinued Medications Insulin Glargine (Lantus), 100 UNIT SC DAILY Insulin Lispro (Human) (Humalog), 100 UNIT SC TIDP PRN Durable Medical Equipment Blood Glucose Monitoring Suppl (Blood Glucose Monitoring W/Device), KIT XX ACHS, (DME) Blood Glucose Monitoring Suppl (D-Care Glucometer Kit/Glu W/Device), KIT XX ACHS, (DME) Insulin Pen Needle (Fifty50 Pen [place] 31G X), 16 XX ACHS, (DME) Isopropyl Alcohol (Alcohol Prep Pad), % XX ACHS, (DME) Lancets (Freestyle Lancets), UNIT XX ACHS, (DME) Discharge Statement: "Patient was advised to return to the ER or call 911 if any headaches, dizziness, shortness of breath, chest pain, abdominal pain, bleeding, fevers, or worsening of medical condition. Patient was counseled about treatment plan, medications, possible side effects, patientverbalized understanding. All questions were answered to the best of my ability. This discharge took greater then 30 minutes in planning, reviewing documentation, counseling the patient, and discussing with other team members." ASSESSMENT ASSESSMENT Assessment dka Date of Service: Feb 22, 2025 Billing Provider: GERMAN MONTIEL MD Common Visit Codes: 99431-[id number] DISCH DAY >30min GERMAN MONTIEL MD Feb 22, 2025 18:39
== END 2025-02-22 19:10 | disposition home or self-care (01) | DRG 380 ==
LOC: EDBD 13:38 → ER 13:38 → OVERFLOW 16:10 → ICU CENTRL 21:20 → TELE-CENTR 02-21 10:02 → CENTRAL 02-21 17:50
PROVIDERS: ADMIT Student in an Organized Health Care Education/Training Program; ATTEND Student in an Organized Health Care Education/Training Program
PROC: 0DB68ZX Excision of Stomach, Via Natural or Artificial Opening Endoscopic, Diagnostic (ICD-10-PCS; 2025-02-19)
PROC: 0DB58ZX Excision of Esophagus, Via Natural or Artificial Opening Endoscopic, Diagnostic (ICD-10-PCS; 2025-02-19)
PROC: 0DB98ZX Excision of Duodenum, Via Natural or Artificial Opening Endoscopic, Diagnostic (ICD-10-PCS; principal; 2025-02-19 14:16)
DX: K22.11 Ulcer of esophagus with bleeding (principal); E11.10 Type 2 diabetes mellitus with ketoacidosis without coma; N17.0 Acute kidney failure with tubular necrosis; R65.10 Systemic inflammatory response syndrome (SIRS) of non-infectious origin without acute organ dysfunction; K29.71 Gastritis, unspecified, with bleeding; E83.42 Hypomagnesemia; F17.210 Nicotine dependence, cigarettes, uncomplicated; F12.90 Cannabis use, unspecified, uncomplicated; K44.9 Diaphragmatic hernia without obstruction or gangrene; E87.6 Hypokalemia; E83.39 Other disorders of phosphorus metabolism; E83.51 Hypocalcemia; K21.9 Gastro-esophageal reflux disease without esophagitis; Z88.3 Allergy status to other anti-infective agents; Z90.49 Acquired absence of other specified parts of digestive tract; Z71.51 Drug abuse counseling and surveillance of drug abuser; Z79.4 Long term (current) use of insulin
CPT/HCPCS: 36415; 71045; 74176; 80048; 80053; 81001; 81025; 82010; 82962; 83036; 83690; 83735; 83930; 84100; 85025; 85610; 85730; 87040; 87081; 96360; 96361; 96372; 99291; G0378; J1100; J1815; J2003; J2250; J2405; J2470; J2704; J3480; J3490; J7060